=== PATIENT | male | born 1940 | race Caucasian/White ===

== ENCOUNTER 2021-07-17 11:36 | Inpatient (IN) | payer MEDICARE, OTHER ==
[~2021-07-17] VITALS: Ht 162.6 cm; Wt 70.8 kg
--- NOTE | 2021-07-17 11:40 | NUR ---
Note michelevie in EDM - 07/17/21 at 1151 by ZAC BIB private ambulance and SALES FORECAST ANALYST with SNF with c/o chronic neck mass that has been getting progressively worse. Pt has trach to vent, no s/s of acute distress noted. Pt was referred to ER by .
--- NOTE | 2021-07-17 11:40 | NUR ---
BIB private ambulance and CHASSIS DRIVER from SNF with c/o chronic neck mass that has been getting progressively worse. Pt has trach to vent, no s/s of acute distress noted. Pt was referred to ER by .
--- NOTE | 2021-07-17 11:45 | NUR ---
Pt placed on vent by NANNY CAREGIVER.
--- NOTE | 2021-07-17 11:50 | NUR ---
Dr. Thorne paged per Dr. Rogers request.
[2021-07-17 11:59] LABS: HEMATOCRIT 26.1 % (36.7-47.1); MEAN CORPUSCULAR HEMOGLOBIN 31.5 uug (23.8-33.4); PLATELET COUNT (AUTO) 212 K/uL (152-348)
[2021-07-17 12:11] LABS: CARBON DIOXIDE 27 mmol/L (21-32); CHLORIDE 103 mmol/L (98-107); CREATININE 2.6 mg/dL (0.6-1.3); GLUCOSE 129 mg/dL (74-106); POTASSIUM 3.9 mmol/L (3.5-5.1); UREA NITROGEN, BLOOD 50 mg/dL (7-18)
[2021-07-17] MEDS ORDERED: SWABABLE VALVE TRANSFER SET EA MC ONE (12:18)
[2021-07-17] MEDS ORDERED: IOHEXOL 300MG/ML 100 ML INFUS..BTL ONE (12:18)
[2021-07-17] MEDS ORDERED: IV NORMAL SALINE 250 ML IV ONE (12:18)
--- NOTE | 2021-07-17 13:00 | NUR ---
Dr. Rogers spoke with Dr. Thorne and pt has been accepted for admission to [facility]. Spoke with charge nurse on tele/[facility] floor who will call back when [facility] bed is available. Pt resting with NAD noted at this time.
[2021-07-17] MEDS ORDERED: HYDR100T27 GT (13:03)
[2021-07-17] MEDS ORDERED: FOLI0.8T2 GT (13:03)
[2021-07-17] MEDS ORDERED: ACET-2154 PO (13:03)
[2021-07-17] MEDS ORDERED: ATOR40TA GT (13:03)
[2021-07-17] MEDS ORDERED: NA P133E RC (13:03)
[2021-07-17] MEDS ORDERED: OMEP40CA21 GT (13:03)
[2021-07-17] MEDS ORDERED: GABA-532 GT ×2 (13:03)
[2021-07-17] MEDS ORDERED: ACET-73 GT (13:03)
[2021-07-17] MEDS ORDERED: DOCU100C36 GT (13:03)
[2021-07-17] MEDS ORDERED: OMEP20TA5 PO (13:03)
[2021-07-17] MEDS ORDERED: BENA40TA8 GT (13:03)
[2021-07-17] MEDS ORDERED: DOXA8TAB79 GT (13:03)
[2021-07-17] MEDS ORDERED: MAGN400O6 GT (13:03)
[2021-07-17] MEDS ORDERED: NITR0.4T SL (13:03)
[2021-07-17] MEDS ORDERED: TRAM50TA2 GT (13:03)
[2021-07-17] MEDS ORDERED: ASCO500P18 GT (13:03)
[2021-07-17] MEDS ORDERED: METO25TA6 GT (13:03)
[2021-07-17] MEDS ORDERED: POLY17PO4 GT (13:03)
[2021-07-17] MEDS ORDERED: AMLO-212 GT (13:03)
[2021-07-17] MEDS ORDERED: CELE200C GT (13:03)
[2021-07-17] MEDS ORDERED: ISOS40TA19 GT (13:03)
[2021-07-17] MEDS ORDERED: MAG355OR18 GT (13:03)
[2021-07-17] MEDS ORDERED: BISA10SU61 RC (13:03)
[2021-07-17] MEDS ORDERED: FOLI1TAB94 GT (13:03)
[2021-07-17] MEDS ORDERED: IPRA0.2S48 NEB ×2 (13:03)
[2021-07-17 14:53] LABS: BILIRUBIN,DIRECT 0.1 mg/dL (0.0-0.2); BILIRUBIN,TOTAL 0.3 mg/dL (0.2-1.0)
[2021-07-17] MEDS ORDERED: ONDANSETRON 4 MG/2 ML VIAL IV PRN (16:15)
[2021-07-17] MEDS ORDERED: BISACODYL 10 MG SUPP.RECT RC PRN (16:15)
[2021-07-17] MEDS ORDERED: NITROGLYCERIN 0.4 MG/TAB BOTTLE SL PRN (16:15)
[2021-07-17] MEDS ORDERED: MAG HYDROX/AL HYDROX/SIMETH 30 ML LIQUID UDC GT PRN (16:15)
[2021-07-17] MEDS ORDERED: FLEET ENEMA 133 ML BOTTLE RC PRN (16:15)
[2021-07-17] MEDS ORDERED: IPRATROPIUM BROMIDE 0.5 MG/2.5 ML NEBU NEB PRN (16:15)
--- NOTE | 2021-07-17 17:15 | NUR ---
Pt trans to [facility] room 308, NAD noted.
[2021-07-17 17:30] VITALS: BP 153/47
--- NOTE | 2021-07-17 18:00 | NUR ---
ADMITTED FROM ER AN 80 YO MALE FROM [facility] WITH DX OF CHF, RIGHT NECK MASS. ALERT AND ABLE TO COMMUNICATE BY SIGN LANGUAGE. NO SS OF SOB OR RESP DISTRESS. ON A VENT SETS AT 16-600-40-5. ADMISSION ORDERS GIVEN BY DR GUTIERREZ, SR ON MONITOR.
[2021-07-17 20:06] VITALS: BP 157/51
[2021-07-17] MEDS: NEPRO 1000 ML GT PRN (20:50)
[2021-07-17] MEDS: IPRATROPIUM BROMIDE 0.5 MG/2.5 ML NEBU NEB SCH (20:59)
[2021-07-17] MEDS ORDERED: GABAPENTIN 100 MG CAPSULE GT SCH (21:00)
[2021-07-17] MEDS: GABAPENTIN 100 MG CAPSULE GT SCH (21:45)
[2021-07-17] MEDS: DOXAZOSIN 2 MG TABLET GT SCH (21:46)
[2021-07-17] MEDS: AMLODIPINE 5 MG TABLET GT SCH (21:46)
[2021-07-17] MEDS: ISOSORBIDE DINITRATE 20 MG TABLET GT SCH (21:46)
[2021-07-17] MEDS: ATORVASTATIN 40 MG TABLET GT SCH (21:47)
[2021-07-17] MEDS: Z GUARD REMEDY PASTE 57 GM TUBE TOP SCH (21:47)
[2021-07-17] MEDS: hydrALAZINE HCL 50 MG TABLET GT SCH (21:48)
--- NOTE | 2021-07-17 23:50 | NUR ---
PATIENT ON CONT VENT WITH PORTEX # [address] AND SECURED, WITH CURRENT VENT SETTINGS, A/C 18, 600ML, PEEP5, FIO2 @ 40%, PT AWAKE AT TIMES, PT DOES ASSIST AT TIMES, PT CAN SUCTION HIS MOUTH WITH YANKAUER, PROD, A LOT OF ORAL SECRETIONS, CHECK CUFF, NO VENT CHANGES MADE, P.OXY CONT AT BEDSIDE, Q6 NEB INLINE WITH ATROVENT TOLL WELL, AMBU BAG AT BEDSIDE .Ronnell PALACIOSP Addendum: 07/17/21 at 2353 by CHRISTINE CHACKO RT Amended: Links added.
[2021-07-18 00:03] VITALS: BP 118/55
[2021-07-18] MEDS: IPRATROPIUM BROMIDE 0.5 MG/2.5 ML NEBU NEB SCH ×4 (02:15→19:25)
[2021-07-18 04:10] VITALS: BP 124/50
[2021-07-18] MEDS: hydrALAZINE HCL 50 MG TABLET GT SCH ×3 (06:00→21:08)
[2021-07-18 07:33] VITALS: BP 126/41
--- NOTE | 2021-07-18 08:00 | NUR ---
RECEIVED PATIENT LAYING IN BED IN NO APPARENT DISTRESS. THE PATIENT IS ALERT AND ORIENTED, NONVERBAL BUT ABLE TO MOUTH NEEDS. PATIENT IS CURRENTLY ON VENT AC 18 VT 600 40% + 5 AND TOLERATING SETTINGS WELL, RR EVEN AND NON-LABORED, NO EPISODE OF SOB AT THIS TIME. PATIENT CURRENTLY ON GT FEEDING, TOLERATING WELL, 0 RESIDUAL NOTED AT THIS TIME. PATIENT CURRENTLY ON TELEMETRY SHOWING NSR AT 64 HR. PATIENT DENIES ANY PAIN OR DISCOMFORT AT THIS TIME. V/S WNL. REMINDED TO USE CALL LIGHT FOR HELP.
[2021-07-18] MEDS: DOCUSATE SODIUM 100 MG/10 ML LIQUID UDC GT SCH (08:51)
[2021-07-18] MEDS: PANTOPRAZOLE ORAL SUSPENSION 40 MG SUSPDR.PKT GT SCH (08:52)
[2021-07-18] MEDS: ASCORBIC ACID 500 MG TABLET GT SCH (08:52)
[2021-07-18] MEDS: FOLIC ACID/VITAMIN B COMP W-C TABLET GT SCH (08:53)
[2021-07-18] MEDS: GABAPENTIN 100 MG CAPSULE GT SCH ×3 (08:53→21:04)
[2021-07-18] MEDS: AMLODIPINE 5 MG TABLET GT SCH ×2 (08:54→17:02)
[2021-07-18] MEDS: MIRALAX 17 GM POWD.PACK GT SCH (08:56)
[2021-07-18] MEDS: ISOSORBIDE DINITRATE 20 MG TABLET GT SCH ×2 (08:56→21:05)
[2021-07-18] MEDS: Z GUARD REMEDY PASTE 57 GM TUBE TOP SCH ×2 (08:57→21:06)
[2021-07-18] MEDS: ACETAMINOPHEN 650 MG/20.3 ML LIQUID UDC GT PRN (09:16)
[2021-07-18 11:46] VITALS: BP 120/40
[2021-07-18 16:00] VITALS: BP 122/36
--- NOTE | 2021-07-18 16:12 | NUR ---
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 Rodgers aware with new orders for Bactroban ointment to both nares q 12 hours x 5 days, order noted and carried out.
--- NOTE | 2021-07-18 16:35 | NUR ---
ART from crisis team in unit evaluating patient.
[2021-07-18] MEDS: NEPRO 1000 ML GT PRN (17:07)
--- NOTE | 2021-07-18 17:37 | NUR ---
patient on a hold to be transferred to [facility].
--- NOTE | 2021-07-18 17:37 | NUR ---
belonging lists completed with 2 nurses and discharge paperwork completed with 2 nurses, patient unable to sign due to cognitive status. Informed patient of transfer to [facility], patient with slight confusion, replies ok Addendum: 07/18/21 at 1850 by DIMITRIOS CRAMER RN incorrect patient
--- NOTE | 2021-07-18 19:25 | NUR ---
Pt is on a Cobos ventilator on settings of A/C 18, VT 600, PEEP +5 and FIO2-40%. No resp. distress noted. Portex 7 is patent and secure. BVM and B/U Portex 7 are at at bedside. Pt to be monitored throughout the shift and PRN SX. Cobos alarm parameters have been checked and remain audible.
[2021-07-18 20:42] VITALS: BP 130/52
[2021-07-18] MEDS: ATORVASTATIN 40 MG TABLET GT SCH (21:05)
[2021-07-18] MEDS: DOXAZOSIN 2 MG TABLET GT SCH (21:05)
[2021-07-18] MEDS: MUPIROCIN 2% OINT 22 GM TUBE NS SCH (21:06)
[2021-07-19 00:09] VITALS: BP 126/40
[2021-07-19] MEDS: IPRATROPIUM BROMIDE 0.5 MG/2.5 ML NEBU NEB SCH ×4 (00:47→19:41)
[2021-07-19 04:58] VITALS: BP 133/44
[2021-07-19] MEDS: hydrALAZINE HCL 50 MG TABLET GT SCH ×3 (05:48→22:26)
[2021-07-19 06:55] LABS: MEAN CORPUSCULAR HEMOGLOBIN 32.1 uug (23.8-33.4); MEAN CORPUSCULAR VOLUME 92.2 fL (73.0-96.2); PLATELET COUNT (AUTO) 205 K/uL (152-348)
[2021-07-19 07:22] LABS: ALANINE AMINOTRANSFERASE 25 U/L (16-63); ALKALINE PHOSPHATASE 180 U/L (50-136); ASPARTATE AMINOTRANSFERASE 21 U/L (15-37); BILIRUBIN,TOTAL 0.4 mg/dL (0.2-1.0); CARBON DIOXIDE 20 mmol/L (21-32); CHLORIDE 103 mmol/L (98-107); CHOLESTEROL 67 mg/dL (<200); CREATININE 2.7 mg/dL (0.6-1.3); GLUCOSE 117 mg/dL (74-106); HDL CHOLESTEROL 35 mg/dL (40-60); PHOSPHOROUS 3.3 mg/dL (2.5-4.9); POTASSIUM 3.2 mmol/L (3.5-5.1); TOTAL PROTEIN, SERUM 6.8 g/dL (6.4-8.2); TRIGLYCERIDES 70 MG/DL (30-150); UREA NITROGEN, BLOOD 63 mg/dL (7-18)
[2021-07-19 07:27] LABS: IRON, SERUM 44 ug/dL (50-175)
--- NOTE | 2021-07-19 07:30 | NUR ---
Awake, alert, on moderate high back rest. Trach to vent with settings of TV 600, AC 18, FI02 40%, PEEP 5. Oral secretions suctioned. Nephro per GT at 60 ml/hr. Midline on RUE intact.
[2021-07-19 08:24] LABS: THYROID STIMULATING HORMONE 1.286 mIU/mL (0.358-3.740)
[2021-07-19] MEDS ORDERED: POTASSIUM CHLORIDE 20 MEQ POWDER PACKET GT ONE (09:15)
[2021-07-19 12:00] VITALS: BP 117/48
[2021-07-19] MEDS: DOCUSATE SODIUM 100 MG/10 ML LIQUID UDC GT SCH (12:45)
[2021-07-19] MEDS: ISOSORBIDE DINITRATE 20 MG TABLET GT SCH ×2 (12:46→20:56)
[2021-07-19] MEDS: MIRALAX 17 GM POWD.PACK GT SCH (12:46)
[2021-07-19] MEDS: ASCORBIC ACID 500 MG TABLET GT SCH (12:47)
[2021-07-19] MEDS: FOLIC ACID/VITAMIN B COMP W-C TABLET GT SCH (12:47)
[2021-07-19] MEDS: PANTOPRAZOLE ORAL SUSPENSION 40 MG SUSPDR.PKT GT SCH (12:47)
[2021-07-19] MEDS: GABAPENTIN 100 MG CAPSULE GT SCH ×3 (12:47→20:56)
[2021-07-19] MEDS: AMLODIPINE 5 MG TABLET GT SCH ×2 (12:48→18:01)
[2021-07-19] MEDS: Z GUARD REMEDY PASTE 57 GM TUBE TOP SCH ×2 (12:51→20:57)
[2021-07-19] MEDS: MUPIROCIN 2% OINT 22 GM TUBE NS SCH ×2 (12:51→20:56)
--- NOTE | 2021-07-19 13:00 | NUR ---
Hemodialysis done with 2L output. Medications given. With BM incontinence care done with bed bath. Repositioned comfortably
[2021-07-19 14:12] LABS: ABG BASE EXCESS 4.2 mmol/L; ABG HCO3 24.5 mmol/L; ABG PCO2 23.7 mmHg (35.0-45.0); ABG PH 7.632 (7.350-7.450); ABG PO2 119.2 mmHg (75.0-100.0); ABG SITE LEFT RADIAL; ABG TOTAL HEMOGLOBIN 10.4 G/dL (13.5-18.0); COHb 0.3 % (0.5-1.5); MetHb 0.4 % (0.0-1.5); O2Hb 97.8 % (94.0-97.0); VENT MODE VENT - A/C; VT, ABG 600 mL
--- NOTE | 2021-07-19 15:18 | NUR ---
Clinical Social Work Note SW consult was requested for SW to speak with patients daughter. Patient is a 80 year old male. SW did not visit patient as daughter requested to speak with SW. SW spoke with patients daughter over the phone who wanted more information about advanced directive. SW provided information regarding the process of obtaining an advance directive. Patients daughter stated that her brother has been the patients caregiver but her brother has been ill. Patients daughter stated that she understood the process of the advanced directive and that she would like SW to explain it to patient during her next visit. Per patient's daughter, at the SNF, they had provided patient with a blank DPOA form, but it was never completed. Plan: SW will continue to follow up with patients daughter.
[2021-07-19 16:00] VITALS: BP 130/52
[2021-07-19 16:17] LABS: FERRITIN 539 ng/mL (26-388)
[2021-07-19] MEDS: NEPRO 1000 ML GT PRN (16:48)
--- NOTE | 2021-07-19 18:44 | NUR ---
ABG's done. Vent settings changed to rate of 14; FIO2 30%. Secretions suctioned. oral care done. Nephro at 60 ml/hr, well tolerated, no significant residual noted. Incontinence care done. Repositioned comfortably.
[2021-07-19 20:15] VITALS: BP 125/40
[2021-07-19] MEDS: DOXAZOSIN 2 MG TABLET GT SCH (20:55)
[2021-07-19] MEDS: ATORVASTATIN 40 MG TABLET GT SCH (20:57)
[2021-07-20 00:10] VITALS: BP 110/37
[2021-07-20] MEDS: IPRATROPIUM BROMIDE 0.5 MG/2.5 ML NEBU NEB SCH ×4 (01:15→21:41)
[2021-07-20 04:10] VITALS: BP 135/45
[2021-07-20] MEDS: hydrALAZINE HCL 50 MG TABLET GT SCH ×3 (06:28→21:58)
[2021-07-20 07:07] LABS: A/G RATIO 0.8 (0.7-1.7); ALBUMIN 2.7 g/dL (2.9-4.4); ALPHA-1-GLOBULIN 0.3 g/dL (0.0-0.4); ALPHA-2-GLOBULIN 0.8 g/dL (0.4-1.0); GAMMA GLOBULIN 1.3 g/dL (0.4-1.8); GLOBULIN, TOTAL 3.5 g/dL (2.2-3.9); M-SPIKE Not Observed g/dL (Not Observed)
[2021-07-20 07:07] LABS: HEPATITIS B SURFACE AG Negative (Negative)
[2021-07-20 08:00] VITALS: BP 141/46
[2021-07-20 08:06] LABS: *IMMUNOGLOBULIN G, SERUM 1250 mg/dL (603-1613); IMMUNOGLOBULIN A, SERUM 549 mg/dL (61-437); IMMUNOGLOBULIN M, SERUM 91 mg/dL (15-143)
--- NOTE | 2021-07-20 09:00 | NUR ---
ALL MEDS HELD. PATIENT NPO FOR CT ABDOMEN. AWAITING RT AND RADIOLOGY TO TRANSPORT PATIENT.
[2021-07-20] MEDS ORDERED: IV NORMAL SALINE 250 ML IV ONE (10:34)
[2021-07-20] MEDS ORDERED: SWABABLE VALVE TRANSFER SET EA MC ONE (10:34)
[2021-07-20] MEDS ORDERED: IOHEXOL 300MG/ML 100 ML INFUS..BTL ONE (10:34)
[2021-07-20 12:00] VITALS: BP 121/43
[2021-07-20] MEDS: PANTOPRAZOLE ORAL SUSPENSION 40 MG SUSPDR.PKT GT SCH (13:02)
[2021-07-20] MEDS: GABAPENTIN 100 MG CAPSULE GT SCH ×3 (13:02→21:00)
[2021-07-20] MEDS: ASCORBIC ACID 500 MG TABLET GT SCH (13:03)
[2021-07-20] MEDS: FOLIC ACID/VITAMIN B COMP W-C TABLET GT SCH (13:03)
[2021-07-20] MEDS: DOCUSATE SODIUM 100 MG/10 ML LIQUID UDC GT SCH (13:04)
[2021-07-20] MEDS: ISOSORBIDE DINITRATE 20 MG TABLET GT SCH ×2 (13:04→21:58)
[2021-07-20] MEDS: AMLODIPINE 5 MG TABLET GT SCH ×2 (13:04→20:09)
[2021-07-20] MEDS: MIRALAX 17 GM POWD.PACK GT SCH (13:05)
[2021-07-20] MEDS: MUPIROCIN 2% OINT 22 GM TUBE NS SCH ×2 (13:06→21:59)
[2021-07-20] MEDS: Z GUARD REMEDY PASTE 57 GM TUBE TOP SCH ×2 (13:07→22:00)
--- NOTE | 2021-07-20 13:45 | NUR ---
FINALLY RETURNEN FROM CT. TUBE FEEDING STARTED, AND AM MEDS GIVEN.
[2021-07-20 16:00] VITALS: BP 122/47
[2021-07-20 20:00] VITALS: BP 145/59
[2021-07-20] MEDS: TRAMADOL HCL 50 MG TABLET GT PRN (20:09)
[2021-07-20] MEDS: ATORVASTATIN 40 MG TABLET GT SCH (21:59)
[2021-07-20] MEDS: DOXAZOSIN 2 MG TABLET GT SCH (21:59)
[2021-07-21] VITALS: BP 125/54
[2021-07-21] MEDS: IPRATROPIUM BROMIDE 0.5 MG/2.5 ML NEBU NEB SCH ×4 (01:39→20:24)
[2021-07-21 04:00] VITALS: BP 107/58
[2021-07-21] MEDS: hydrALAZINE HCL 50 MG TABLET GT SCH ×3 (06:34→22:11)
--- NOTE | 2021-07-21 07:30 | NUR ---
AWAKE ALERT AND ABLE TO FOLLOW COMMAND SATURATING 100% WITH SAME VENT SETTINGS 14-600-30-5, DENIES PAIN SR ON MONITOR
[2021-07-21] MEDS: DOCUSATE SODIUM 100 MG/10 ML LIQUID UDC GT SCH (08:13)
[2021-07-21] MEDS: GABAPENTIN 100 MG CAPSULE GT SCH ×3 (08:13→20:15)
[2021-07-21] MEDS: ASCORBIC ACID 500 MG TABLET GT SCH (08:13)
[2021-07-21] MEDS: PANTOPRAZOLE ORAL SUSPENSION 40 MG SUSPDR.PKT GT SCH (08:13)
[2021-07-21] MEDS: FOLIC ACID/VITAMIN B COMP W-C TABLET GT SCH (08:13)
[2021-07-21] MEDS: MIRALAX 17 GM POWD.PACK GT SCH (08:14)
[2021-07-21] MEDS: AMLODIPINE 5 MG TABLET GT SCH ×2 (08:14→16:09)
[2021-07-21] MEDS: MUPIROCIN 2% OINT 22 GM TUBE NS SCH ×2 (08:15→20:17)
[2021-07-21] MEDS: ISOSORBIDE DINITRATE 20 MG TABLET GT SCH ×2 (08:15→20:17)
[2021-07-21] MEDS: Z GUARD REMEDY PASTE 57 GM TUBE TOP SCH ×2 (08:16→20:18)
[2021-07-21] MEDS: ACETAMINOPHEN 650 MG/20.3 ML LIQUID UDC GT PRN (08:22)
[2021-07-21 08:31] LABS: ABG BASE EXCESS 0.8 mmol/L; ABG HCO3 21.9 mmol/L; ABG PCO2 24.4 mmHg (35.0-45.0); ABG PH 7.571 (7.350-7.450); ABG PO2 98.9 mmHg (75.0-100.0); ABG SITE LEFT RADIAL; ABG TOTAL HEMOGLOBIN 10.5 G/dL (13.5-18.0); COHb 0.3 % (0.5-1.5); MetHb 0.1 % (0.0-1.5); O2Hb 97.2 % (94.0-97.0); VENT MODE VENT - A/C; VT, ABG 500 mL
[2021-07-21] MEDS: NEPRO 1000 ML GT PRN (09:29)
--- NOTE | 2021-07-21 10:14 | NUR ---
SEEN BY DR CARTER FOR FOLLOW-UP SEE NOTES
[2021-07-21 12:02] VITALS: BP 134/42
--- NOTE | 2021-07-21 15:52 | NUR ---
TOLERATING HEMODIALYSIS WELL, REMOVED 2L OF FLUID. REMAINS SR/SB. CONTINUE [facility] MANAGEMENT
[2021-07-21 16:00] VITALS: BP 130/53
[2021-07-21] MEDS: ATORVASTATIN 40 MG TABLET GT SCH (20:16)
[2021-07-21 20:17] VITALS: BP 121/65
[2021-07-21] MEDS: DOXAZOSIN 2 MG TABLET GT SCH (20:17)
[2021-07-21] MEDS: TRAMADOL HCL 50 MG TABLET GT PRN (20:21)
--- NOTE | 2021-07-22 00:32 | NUR ---
PATIENT ON CONT HARDIN VENT WITH PORTEX # [address] AND SECURED, WITH CURRENT VENT SETTINGS, A/C 14, VT 500ML, FIO2 30%, PEEP 5, SUCTIONED LIGHT PALE YELL TINGE SECRETIONS, AND SUCTION MOUTH WITH YANKAUER, VERY PROD, ALL VENT ALARMS GOOD, NEB INLINE Q6 WITH ATROVENT TOLL WELL, NO VENT CHANGES MADE.Ronnell CHACKO RCP Addendum: 07/22/21 at 0038 by CHRISTINE CHACKO RT Amended: Links added.
[2021-07-22 00:52] VITALS: BP 113/48
[2021-07-22] MEDS: IPRATROPIUM BROMIDE 0.5 MG/2.5 ML NEBU NEB SCH ×4 (03:05→20:52)
[2021-07-22 04:43] VITALS: BP 124/46
[2021-07-22] MEDS: hydrALAZINE HCL 50 MG TABLET GT SCH ×3 (05:56→21:17)
[2021-07-22 07:36] LABS: HEMATOCRIT 26.2 % (36.7-47.1); MEAN CORPUSCULAR HEMOGLOBIN 32.7 uug (23.8-33.4); PLATELET COUNT (AUTO) 229 K/uL (152-348)
[2021-07-22 07:51] LABS: ALANINE AMINOTRANSFERASE 28 U/L (16-63); ALKALINE PHOSPHATASE 171 U/L (50-136); ASPARTATE AMINOTRANSFERASE 24 U/L (15-37); BILIRUBIN,TOTAL 0.5 mg/dL (0.2-1.0); CARBON DIOXIDE 26 mmol/L (21-32); CHLORIDE 99 mmol/L (98-107); CREATININE 2.5 mg/dL (0.6-1.3); GLUCOSE 115 mg/dL (74-106); POTASSIUM 3.4 mmol/L (3.5-5.1); TOTAL PROTEIN, SERUM 7.6 g/dL (6.4-8.2); UREA NITROGEN, BLOOD 43 mg/dL (7-18)
--- NOTE | 2021-07-22 08:00 | NUR ---
PATIENT IN BED RESTING COMFORTABLY. ALERT AND FOLLOWING COMMANDS. NO SIGNS OF DISTRESS WITH CURRENT VENT SETTINGS AT RR 14 - TV 600 -FIO2 40% - PEEP 5
[2021-07-22 08:14] VITALS: BP 139/47
[2021-07-22] MEDS: MIRALAX 17 GM POWD.PACK GT SCH (08:32)
[2021-07-22] MEDS: DOCUSATE SODIUM 100 MG/10 ML LIQUID UDC GT SCH (08:32)
[2021-07-22] MEDS: PANTOPRAZOLE ORAL SUSPENSION 40 MG SUSPDR.PKT GT SCH (08:32)
[2021-07-22] MEDS: ASCORBIC ACID 500 MG TABLET GT SCH (08:36)
[2021-07-22] MEDS: ISOSORBIDE DINITRATE 20 MG TABLET GT SCH ×2 (08:38→21:13)
[2021-07-22] MEDS: GABAPENTIN 100 MG CAPSULE GT SCH ×3 (08:38→21:14)
[2021-07-22] MEDS: FOLIC ACID/VITAMIN B COMP W-C TABLET GT SCH (08:38)
[2021-07-22] MEDS: AMLODIPINE 5 MG TABLET GT SCH ×2 (08:39→17:10)
[2021-07-22] MEDS: MUPIROCIN 2% OINT 22 GM TUBE NS SCH ×2 (08:40→21:14)
[2021-07-22] MEDS: Z GUARD REMEDY PASTE 57 GM TUBE TOP SCH ×2 (08:41→21:15)
[2021-07-22] MEDS ORDERED: POTASSIUM CHLORIDE 20 MEQ POWDER PACKET GT ONE (11:00)
[2021-07-22 11:55] VITALS: BP 112/43
[2021-07-22 15:39] VITALS: BP 86/41
[2021-07-22] MEDS: DOXAZOSIN 2 MG TABLET GT SCH (21:13)
[2021-07-22] MEDS: ATORVASTATIN 40 MG TABLET GT SCH (21:14)
[2021-07-22] MEDS: TRAMADOL HCL 50 MG TABLET GT PRN (21:20)
[2021-07-22 21:36] VITALS: BP 136/90
[2021-07-23 00:24] VITALS: BP 139/45
--- NOTE | 2021-07-23 00:52 | NUR ---
PATIENT ON CONT HARDIN VENT WITH PORTEX # [address] AND SECURED, WITH CURRENT VENT SETTINGS, A/C 14, 500ML, PEEP5, FIO2 @ 30%, PT DOES ASSIST AT TIMES, GOOD COUGH EFFORT, PT IS ALERT AND COHERENT , SUCTIONED THICK PALE YELL TINGE SECRETIONS, SUCTION MOUTH WITH YANKAUER, CHANGE HME, NEB INLINE X 2 WITH ATROVENT, ALL VENT ALARMS GOOD, NO VENT CHANGES MADE, PULSE OXY CONT AT BEDSIDE. Ronnell PALACIOSP Addendum: 07/23/21 at 0056 by CHRISTINE CHACKO RT Amended: Links added.
[2021-07-23] MEDS: IPRATROPIUM BROMIDE 0.5 MG/2.5 ML NEBU NEB SCH ×4 (02:49→19:00)
[2021-07-23 04:03] VITALS: BP 135/47
[2021-07-23] MEDS: hydrALAZINE HCL 50 MG TABLET GT SCH ×3 (06:00→21:36)
--- NOTE | 2021-07-23 06:00 | NUR ---
Pt rested well in between care; oral care and trache care done; suctioned oral and trache secretions
[2021-07-23 07:19] LABS: CARBON DIOXIDE 27 mmol/L (21-32); CHLORIDE 100 mmol/L (98-107); CREATININE 3.1 mg/dL (0.6-1.3); GLUCOSE 120 mg/dL (74-106); POTASSIUM 3.5 mmol/L (3.5-5.1); UREA NITROGEN, BLOOD 62 mg/dL (7-18)
[2021-07-23 08:00] VITALS: BP 138/48
[2021-07-23] MEDS: DOCUSATE SODIUM 100 MG/10 ML LIQUID UDC GT SCH (08:16)
[2021-07-23] MEDS: MIRALAX 17 GM POWD.PACK GT SCH (08:16)
[2021-07-23] MEDS: ISOSORBIDE DINITRATE 20 MG TABLET GT SCH ×2 (08:17→20:39)
[2021-07-23] MEDS: PANTOPRAZOLE ORAL SUSPENSION 40 MG SUSPDR.PKT GT SCH (08:17)
[2021-07-23] MEDS: GABAPENTIN 100 MG CAPSULE GT SCH ×3 (08:17→20:38)
[2021-07-23] MEDS: AMLODIPINE 5 MG TABLET GT SCH ×2 (08:19→16:19)
[2021-07-23] MEDS: FOLIC ACID/VITAMIN B COMP W-C TABLET GT SCH (08:19)
[2021-07-23] MEDS: TRAMADOL HCL 50 MG TABLET GT PRN (08:19)
[2021-07-23] MEDS: Z GUARD REMEDY PASTE 57 GM TUBE TOP SCH ×2 (08:42→20:39)
[2021-07-23] MEDS: ASCORBIC ACID 500 MG TABLET GT SCH (08:42)
[2021-07-23] MEDS: MUPIROCIN 2% OINT 22 GM TUBE NS SCH (08:42)
[2021-07-23 11:17] VITALS: BP 132/40
[2021-07-23] MEDS: NEPRO 1000 ML GT PRN (12:03)
[2021-07-23 15:26] VITALS: BP 126/44
[2021-07-23 20:02] VITALS: BP 140/54
[2021-07-23] MEDS: DOXAZOSIN 2 MG TABLET GT SCH (20:38)
[2021-07-23] MEDS: ATORVASTATIN 40 MG TABLET GT SCH (20:38)
[2021-07-24 00:22] VITALS: BP 131/47
[2021-07-24] MEDS: IPRATROPIUM BROMIDE 0.5 MG/2.5 ML NEBU NEB SCH ×4 (00:30→19:12)
[2021-07-24 04:33] VITALS: BP 137/46
--- NOTE | 2021-07-24 06:00 | NUR ---
Suctioned pt through out night x 5 times moderate amount each time. Pt slept well throughout night. G tube flushing well. Pt tolerating Vent settings as ordered with sat of 99%. Z guard applied on buttocks and reddened area. Pt is in no acute distress. Call light is within reach.
[2021-07-24] MEDS: hydrALAZINE HCL 50 MG TABLET GT SCH ×3 (06:20→22:17)
[2021-07-24 06:40] LABS: HEMATOCRIT 25.7 % (36.7-47.1); MEAN CORPUSCULAR HEMOGLOBIN 32.6 uug (23.8-33.4); MEAN CORPUSCULAR VOLUME 93.2 fL (73.0-96.2); PLATELET COUNT (AUTO) 236 K/uL (152-348)
[2021-07-24 06:53] LABS: CARBON DIOXIDE 25 mmol/L (21-32); CHLORIDE 101 mmol/L (98-107); CREATININE 3.2 mg/dL (0.6-1.3); GLUCOSE 104 mg/dL (74-106); MAGNESIUM 1.9 mg/dL (1.8-2.4); POTASSIUM 3.4 mmol/L (3.5-5.1); UREA NITROGEN, BLOOD 71 mg/dL (7-18)
[2021-07-24 08:00] VITALS: BP 153/51
[2021-07-24] MEDS: ISOSORBIDE DINITRATE 20 MG TABLET GT SCH ×2 (10:00→20:51)
[2021-07-24] MEDS: FOLIC ACID/VITAMIN B COMP W-C TABLET GT SCH (10:01)
[2021-07-24] MEDS: PANTOPRAZOLE ORAL SUSPENSION 40 MG SUSPDR.PKT GT SCH (10:01)
[2021-07-24] MEDS: ASCORBIC ACID 500 MG TABLET GT SCH (10:01)
[2021-07-24] MEDS: GABAPENTIN 100 MG CAPSULE GT SCH ×3 (10:01→20:51)
[2021-07-24] MEDS: MIRALAX 17 GM POWD.PACK GT SCH (10:01)
[2021-07-24] MEDS: DOCUSATE SODIUM 100 MG/10 ML LIQUID UDC GT SCH (10:01)
[2021-07-24] MEDS: CALCITONIN,SALMON,SYNTHETIC 3.7 ML SPRAY.PUMP NS SCH (10:02)
[2021-07-24] MEDS: AMLODIPINE 5 MG TABLET GT SCH ×2 (10:02→16:28)
[2021-07-24] MEDS: Z GUARD REMEDY PASTE 57 GM TUBE TOP SCH ×2 (10:03→22:14)
[2021-07-24 15:49] VITALS: BP 141/48
--- NOTE | 2021-07-24 20:00 | NUR ---
pt has ongoing dialysis; pt will be discharged to [facility] after hd; family here and reiterated to take all belongings with him;
[2021-07-24 20:42] VITALS: BP 124/46
[2021-07-24] MEDS: ATORVASTATIN 40 MG TABLET GT SCH (20:51)
[2021-07-24] MEDS: DOXAZOSIN 2 MG TABLET GT SCH (20:51)
--- NOTE | 2021-07-24 22:46 | NUR ---
following end of HD, called [facility] for transport and no RT available now and will be available by 0800H; aware Addendum: 07/24/21 at 2301 by MALDONADO RODGERS RN Night RN at [facility] aware of AM transfer and stated that to give report to the AM nurse as well.
--- NOTE | 2021-07-24 23:00 | NUR ---
Assumed care of patient from JOSIE Saucedo.
--- NOTE | 2021-07-24 23:01 | NUR ---
report given to JJ GALINDO who will assume care for the rest of the shift.
[2021-07-25 00:05] VITALS: BP 127/46
[2021-07-25] MEDS: IPRATROPIUM BROMIDE 0.5 MG/2.5 ML NEBU NEB SCH (00:44)
[2021-07-25] MEDS: NEPRO 1000 ML GT PRN (03:29)
[2021-07-25 05:00] VITALS: BP 126/46
[2021-07-25] MEDS: hydrALAZINE HCL 50 MG TABLET GT SCH (06:08)
--- NOTE | 2021-07-25 06:27 | NUR ---
Patient AAOx4. In no apparent distress. Trach with vent in place. Suction secretions PRN. Oral care provided. O2 sat at 100%. NSR on tele with HR of 72/min. GT feeding and flushing well tolerated. HOB kept elevated. Right upper arm midline intact and patent. Needs assessed and attended to. Safety measure maintained and call light within reached.
--- NOTE | 2021-07-25 07:37 | NUR ---
Telephone call to [facility] and gave report fro nurse Saldana and states understanding.
[2021-07-25] MEDS: DOCUSATE SODIUM 100 MG/10 ML LIQUID UDC GT SCH (07:54)
[2021-07-25] MEDS: MIRALAX 17 GM POWD.PACK GT SCH (07:54)
[2021-07-25] MEDS: GABAPENTIN 100 MG CAPSULE GT SCH (07:54)
[2021-07-25 07:55] VITALS: BP 126/46
[2021-07-25] MEDS: ISOSORBIDE DINITRATE 20 MG TABLET GT SCH (07:55)
[2021-07-25] MEDS: AMLODIPINE 5 MG TABLET GT SCH (07:55)
[2021-07-25] MEDS: ASCORBIC ACID 500 MG TABLET GT SCH (07:55)
[2021-07-25] MEDS: FOLIC ACID/VITAMIN B COMP W-C TABLET GT SCH (07:55)
[2021-07-25] MEDS: CALCITONIN,SALMON,SYNTHETIC 3.7 ML SPRAY.PUMP NS SCH (07:56)
[2021-07-25] MEDS: PANTOPRAZOLE ORAL SUSPENSION 40 MG SUSPDR.PKT GT SCH (07:56)
[2021-07-25] MEDS: Z GUARD REMEDY PASTE 57 GM TUBE TOP SCH (07:57)
--- NOTE | 2021-07-25 15:37 | NUR ---
Late Entry Social work consult called for family requesting information re DPOA. Patient transferred to [facility] this am. Educated daughter, Lizzy ) re process for DPOA and advised her where she can obtain the DPOA forms. She was appreciative. Also advised her that the care home can assist her with this provided patient is competent to sign this legal document.
== END 2021-07-25 08:45 | DRG 843 ==
LOC: ER 11:36 → DOU3 16:56 → TELE-TD3 17:40
PROVIDERS: ADMIT Internal Medicine; ATTEND Student in an Organized Health Care Education/Training Program
PROC: 5A1955Z Respiratory Ventilation, Greater than 96 Consecutive Hours (ICD-10-PCS; principal; 2021-07-17)
PROC: 5A1D70Z Performance of Urinary Filtration, Intermittent, Less than 6 Hours Per Day (ICD-10-PCS; 2021-07-19)
DX: C79.89 Secondary malignant neoplasm of other specified sites (principal); J96.20 Acute and chronic respiratory failure, unspecified whether with hypoxia or hypercapnia; N18.6 End stage renal disease; E43 Unspecified severe protein-calorie malnutrition; I50.31 Acute diastolic (congestive) heart failure; C15.9 Malignant neoplasm of esophagus, unspecified; D68.59 Other primary thrombophilia; I13.2 Hypertensive heart and chronic kidney disease with heart failure and with stage 5 chronic kidney disease, or end stage renal disease; Z99.11 Dependence on respirator [ventilator] status; J96.10 Chronic respiratory failure, unspecified whether with hypoxia or hypercapnia; Z99.2 Dependence on renal dialysis; D64.9 Anemia, unspecified; E78.5 Hyperlipidemia, unspecified; F17.200 Nicotine dependence, unspecified, uncomplicated; G89.29 Other chronic pain; J44.9 Chronic obstructive pulmonary disease, unspecified; N40.0 Benign prostatic hyperplasia without lower urinary tract symptoms; R13.10 Dysphagia, unspecified; Z20.822 Contact with and (suspected) exposure to COVID-19; Z22.322 Carrier or suspected carrier of Methicillin resistant Staphylococcus aureus; Z74.01 Bed confinement status; Z85.01 Personal history of malignant neoplasm of esophagus; Z93.1 Gastrostomy status; Z93.0 Tracheostomy status; E83.52 Hypercalcemia; K21.9 Gastro-esophageal reflux disease without esophagitis; M19.90 Unspecified osteoarthritis, unspecified site; Z87.891 Personal history of nicotine dependence; F10.21 Alcohol dependence, in remission; Z73.6 Limitation of activities due to disability; R91.8 Other nonspecific abnormal finding of lung field; Z68.26 Body mass index [BMI] 26.0-26.9, adult
CPT/HCPCS: 36415; 36600; 70030-TC; 70491; 71045; 71260; 82378; 82784; 83550; 83735; 83970; 84100; 84155; 84165; 84443; 85025; 85610; 86140; 86334; 86706; 87070; 87077; 87340; 93005; 93307; 94002; 94003; 94640; 94760; A4663; A6209; G0378; J3590; J7030; J7040; J7050; Q9967

== ENCOUNTER 2021-08-14 12:40 | Inpatient (IN) | payer MEDICARE, OTHER ==
[~2021-08-14] VITALS: Ht 162.6 cm; Wt 63.6 kg
[~2021-08-14 12:40] MED LIST: ACET-2154 PO; ACET-73 GT; AMLO-212 GT; ASCO500P18 GT; ATOR40TA GT; BENA40TA8 GT; BISA10SU61 RC; CELE200C GT; DOCU100C36 GT; DOXA8TAB79 GT; FOLI0.8T2 GT; FOLI1TAB94 GT; GABA-532 GT; HYDR100T27 GT; IPRA0.2S48 NEB; ISOS40TA19 GT; MAG355OR18 GT; MAGN400O6 GT; METO25TA6 GT; NA P133E RC; NITR0.4T SL; OMEP20TA5 PO; OMEP40CA21 GT; POLY17PO4 GT; TRAM50TA2 GT
--- NOTE | 2021-08-14 14:28 | NUR ---
PT IS IN ROOM #2B. DR VELÁSQUEZ EVALUATED THE PT.
[2021-08-14 14:53] LABS: MEAN CORPUSCULAR HEMOGLOBIN 34.3 uug (23.8-33.4); MEAN CORPUSCULAR VOLUME 98.2 fL (73.0-96.2); PLATELET COUNT (AUTO) 225 K/uL (152-348)
[2021-08-14 15:10] LABS: ALANINE AMINOTRANSFERASE 20 U/L (16-63); ALKALINE PHOSPHATASE 129 U/L (50-136); ASPARTATE AMINOTRANSFERASE 37 U/L (15-37); BILIRUBIN,DIRECT 0.1 mg/dL (0.0-0.2); BILIRUBIN,TOTAL 0.2 mg/dL (0.2-1.0); CARBON DIOXIDE 26 mmol/L (21-32); CHLORIDE 106 mmol/L (98-107); CREATININE 4.6 mg/dL (0.6-1.3); GLUCOSE 97 mg/dL (74-106); POTASSIUM 4.1 mmol/L (3.5-5.1); TOTAL PROTEIN, SERUM 7.4 g/dL (6.4-8.2)
[2021-08-14 15:24] LABS: HEMATOCRIT 20.6 % (36.7-47.1); UREA NITROGEN, BLOOD 93 mg/dL (7-18)
[2021-08-14] MEDS ORDERED: ONDA4TAB11 GT (17:51)
[2021-08-14] MEDS ORDERED: LEVO500T90 PO (17:51)
[2021-08-14] MEDS ORDERED: CALC3.8S NS (17:51)
[2021-08-14] MEDS ORDERED: SULF1TAB48 GT (17:51)
[2021-08-14] MEDS ORDERED: LEVO500T90 GT (17:51)
[2021-08-14] MEDS: CEFEPIME HCL 2 G in IV DEXTROSE 5% 100 ML IV SCH (18:14)
[2021-08-14] MEDS ORDERED: CEFEPIME HCL 1 G VIAL ONE (18:25)
--- NOTE | 2021-08-14 19:10 | NUR ---
RECEIVED REPORT FROM JOSIE PRINGLE. PT NOTED TO BE IN BED. NO SOB OR LABORED BREATHING. AFEBRILE.
[2021-08-14] MEDS ORDERED: NITROGLYCERIN 0.4 MG/TAB BOTTLE SL PRN (21:00)
[2021-08-14] MEDS ORDERED: VANCOMYCIN IV 1,000 MG in IV DEXTROSE 5% 250 ML IV ONE (21:00)
[2021-08-14] MEDS ORDERED: FLEET ENEMA 133 ML BOTTLE RC PRN (21:00)
[2021-08-14] MEDS ORDERED: TRAMADOL HCL 50 MG TABLET GT PRN (21:00)
[2021-08-14] MEDS ORDERED: BISACODYL 10 MG SUPP.RECT RC PRN (21:00)
[2021-08-14] MEDS ORDERED: IPRATROPIUM BROMIDE 0.5 MG/2.5 ML NEBU NEB PRN (21:00)
[2021-08-14] MEDS ORDERED: ONDANSETRON 4 MG/2 ML VIAL IV PRN (21:00)
[2021-08-14] MEDS: METRONIDAZOLE 500 MG/NS 100ML 500 MG in PREMIXED 1 EACH IV SCH (22:11)
[2021-08-14] MEDS ORDERED: METRONIDAZOLE 500 MG/NS 100ML 100 ML IV ONE (22:15)
[2021-08-14] MEDS ORDERED: CLINDAMYCIN PHOSPHATE 600 MG/4 ML VIAL ONE (22:15)
[2021-08-14] MEDS ORDERED: GABAPENTIN 100 MG CAPSULE ONE (22:45)
[2021-08-14] MEDS ORDERED: DOXAZOSIN 2 MG TABLET ONE (22:45)
[2021-08-14] MEDS: DOXAZOSIN 2 MG TABLET GT SCH (22:55)
[2021-08-14] MEDS: CLINDAMYCIN PHOSPHATE IV 600 MG in IV DEXTROSE 5% 100 ML IV SCH (22:56)
[2021-08-14] MEDS: GABAPENTIN 100 MG CAPSULE GT SCH (22:56)
--- NOTE | 2021-08-14 23:02 | NUR ---
PT IN BED EYES CLOSED, NO SOB OR LABORED BREATHING.
--- NOTE | 2021-08-14 23:48 | NUR ---
PT NOTED TO BE SOILED, PROVIDED PT WITH PROPER PERINEAL CARE, NOW NOTED TO BE CLEAN AND COMFORTABLE.
--- NOTE | 2021-08-14 23:55 | NUR ---
REPORT GIVEN TO JOSIE NIXON.
[2021-08-15] VITALS (11 sets, daily range): BP systolic 100–136; BP diastolic 34–42
--- NOTE | 2021-08-15 00:42 | NUR ---
Pt. admitted to [facility]/tele , under care of Dr. Mart Dx: anemia Belongs List completed Transportation accompanied by RT.
[2021-08-15] MEDS: IPRATROPIUM BROMIDE 0.5 MG/2.5 ML NEBU NEB SCH ×4 (01:50→19:14)
--- NOTE | 2021-08-15 02:36 | NUR ---
PATIENT ON CONT HARDIN VENT WITH PORTEX # [address] AND SECURED, VENT SETTINGS, A/C 14, 600ML, PEEP5, 40%, PT DOES ASSIST AT TIMES, SUCTION THICK PALE YELL TINGE SECRETIONS, AND SUCTION MOUTH WITH YASNKAUER, VERY PROD, PT IS AWAKE, NO VENT CHANGES MADE, ALL VENT ALARMS GOOD, AMBU BAG AT BEDSIDE, PULSE OXY CONT IN ROOM, SAT 98%. NEB INLINE X 1 WITH ATROVENT . Ronnell PALACIOSP Addendum: 08/15/21 at 0238 by CHRISTINE CHACKO RT Amended: Links added.
--- NOTE | 2021-08-15 05:20 | NUR ---
Pt admitted to room 302; admission procedures done; placed on tele and continuous pulse ox; tallked to bood bank and made sure that he received the order for blood; no blood available at this time per Jose, from the lab; GTF started; dressing to neck mass wound done; aspirations precautions observed;
[2021-08-15] MEDS ORDERED: NITROGLYCERIN 0.4 MG/TAB BOTTLE SL PRN (05:33)
[2021-08-15] MEDS ORDERED: CLINDAMYCIN PHOSPHATE 600 MG/4 ML VIAL ONE (05:38)
[2021-08-15] MEDS ORDERED: METRONIDAZOLE 500 MG/NS 100ML 100 ML IV ONE (05:39)
[2021-08-15 05:40] LABS: MEAN CORPUSCULAR HEMOGLOBIN 33.4 uug (23.8-33.4); MEAN CORPUSCULAR VOLUME 96.5 fL (73.0-96.2); PLATELET COUNT (AUTO) 190 K/uL (152-348)
[2021-08-15] MEDS: CLINDAMYCIN PHOSPHATE IV 600 MG in IV DEXTROSE 5% 100 ML IV SCH ×3 (05:49→21:42)
[2021-08-15] MEDS: METRONIDAZOLE 500 MG/NS 100ML 500 MG in PREMIXED 1 EACH IV SCH ×2 (05:49→15:05)
[2021-08-15 06:00] LABS: HEMATOCRIT 20.9 % (36.7-47.1)
[2021-08-15 06:16] LABS: ALANINE AMINOTRANSFERASE 16 U/L (16-63); ALKALINE PHOSPHATASE 99 U/L (50-136); ASPARTATE AMINOTRANSFERASE 18 U/L (15-37); BILIRUBIN,TOTAL 0.4 mg/dL (0.2-1.0); CARBON DIOXIDE 25 mmol/L (21-32); CHLORIDE 98 mmol/L (98-107); CREATININE 4.9 mg/dL (0.6-1.3); GLUCOSE 94 mg/dL (74-106); MAGNESIUM 2.2 mg/dL (1.8-2.4); PHOSPHOROUS 4.7 mg/dL (2.5-4.9); POTASSIUM 3.6 mmol/L (3.5-5.1); TOTAL PROTEIN, SERUM 7.1 g/dL (6.4-8.2)
[2021-08-15 06:29] LABS: UREA NITROGEN, BLOOD 100 mg/dL (7-18)
[2021-08-15] MEDS: NEPRO 1000 ML GT PRN (06:44)
--- NOTE | 2021-08-15 08:00 | NUR ---
AWAKE ALERT AND ABLE TO VERBALIZE NEEDS, CONTINUE VENT SETTINGS SATURATING 100%. SR ON MONITOR
[2021-08-15] MEDS: PANTOPRAZOLE SODIUM 40 MG VIAL IV SCH (08:02)
[2021-08-15] MEDS: GABAPENTIN 100 MG CAPSULE GT SCH ×2 (08:02→16:44)
[2021-08-15] MEDS: FOLIC ACID 1 MG TABLET GT SCH (08:02)
[2021-08-15] MEDS: FOLIC ACID/VITAMIN B COMP W-C TABLET GT SCH (08:02)
[2021-08-15] MEDS: ASCORBIC ACID 500 MG TABLET GT SCH (08:02)
[2021-08-15] MEDS: MIRALAX 17 GM POWD.PACK GT SCH (08:03)
[2021-08-15] MEDS: CALCITONIN,SALMON,SYNTHETIC 3.7 ML SPRAY.PUMP NS SCH (08:04)
[2021-08-15] MEDS: DOCUSATE SODIUM 100 MG/10 ML LIQUID UDC PO SCH (08:04)
[2021-08-15] MEDS: ISOSORBIDE DINITRATE 20 MG TABLET GT SCH ×2 (08:07→20:08)
--- NOTE | 2021-08-15 09:56 | NUR ---
WOUND CARE CONSULT: PT PRESENTS WITH RT NECK MASS AND OPEN WOUND WELL SACRAL SCARRING, PRESENT ON ADMISSION. SURGICAL CONSULT CALLED TO DR IQRA BLOCK. RECOMMENDATIONS MADE FOR SKIN PROTECTION AND WOUND CARE. DISCUSSED WITH NURSING STAFF. MD IN AGREEMENT WITH PLAN OF CARE.
--- NOTE | 2021-08-15 11:56 | NUR ---
BLOOD TRANSFUSION STARTED SLOWLY VIA RIGHT UPPER ARM MIDLINE. OBSERVED
[2021-08-15] MEDS: ACETAMINOPHEN ES 500 MG TABLET GT PRN ×2 (14:10→20:09)
--- NOTE | 2021-08-15 14:28 | NUR ---
NO REACTION FROM BLOOD TRANSFUSION, CONTINUE WITH BLOOD TRANSFUSION ORDERED
[2021-08-15] MEDS: GABAPENTIN 300 MG CAPSULE GT SCH (16:43)
[2021-08-15] MEDS: CEFEPIME HCL 2 G in IV DEXTROSE 5% 100 ML IV SCH (16:44)
[2021-08-15 16:45] LABS: IRON, SERUM 23 ug/dL (50-175)
[2021-08-15 16:58] LABS: FERRITIN 637 ng/mL (26-388)
--- NOTE | 2021-08-15 17:19 | NUR ---
blood transfusion completed without reaction. observed
--- NOTE | 2021-08-15 19:14 | NUR ---
Pt rec'd on Cobos on settings of A/C 14, VT 450, PEEP +8 and FIO2-40%. Portex 7 is patent and secure. BVM and B/U Portex 7 are at bedside. No resp. distress noted. Pt to be monitored throughout the shift, PRN SX and adm'd resp neb tx's per MD orders. Cobos alarm parameters have been checked and remain audible.
--- NOTE | 2021-08-15 20:00 | NUR ---
Received patient lying in bed. AAOx2-3. Able to make needs known. Nods head yes or no. Aphasic. Trach to vent in place. Large tumor on neck area visible. GT feeding infusing. PICC line on right upper arm and peripheral IV on right hand intact and patent. NSR on tele with HR of 62/min. Needs assessed and attended to. Safety measure initiated and call light within reached.
[2021-08-15] MEDS: Z GUARD REMEDY PASTE 57 GM TUBE TOP SCH (20:08)
[2021-08-15] MEDS: DOXAZOSIN 2 MG TABLET GT SCH (20:12)
[2021-08-15] MEDS: METRONIDAZOLE 500 MG TABLET GT SCH (21:41)
[2021-08-16] MEDS: IPRATROPIUM BROMIDE 0.5 MG/2.5 ML NEBU NEB SCH ×4 (00:30→19:02)
[2021-08-16 00:38] VITALS: BP 138/43
[2021-08-16] MEDS: NEPRO 1000 ML GT PRN (00:45)
[2021-08-16 04:00] VITALS: BP 156/55
[2021-08-16] MEDS: CLINDAMYCIN PHOSPHATE IV 600 MG in IV DEXTROSE 5% 100 ML IV SCH ×3 (05:04→23:22)
[2021-08-16] MEDS: METRONIDAZOLE 500 MG TABLET GT SCH ×3 (05:04→23:21)
--- NOTE | 2021-08-16 06:17 | NUR ---
Patient slept well last night. Suction secretions PRN. GT feeding well tolerated. No adverse effect noted from IV and PO antibiotics.
[2021-08-16 06:42] LABS: HEMATOCRIT 23.6 % (36.7-47.1); MEAN CORPUSCULAR HEMOGLOBIN 32.7 uug (23.8-33.4); MEAN CORPUSCULAR VOLUME 94.9 fL (73.0-96.2); PLATELET COUNT (AUTO) 175 K/uL (152-348)
[2021-08-16 07:00] LABS: ALANINE AMINOTRANSFERASE 20 U/L (16-63); ALKALINE PHOSPHATASE 140 U/L (50-136); ASPARTATE AMINOTRANSFERASE 23 U/L (15-37); BILIRUBIN,TOTAL 0.3 mg/dL (0.2-1.0); CARBON DIOXIDE 24 mmol/L (21-32); CHLORIDE 100 mmol/L (98-107); CREATININE 5.1 mg/dL (0.6-1.3); GLUCOSE 128 mg/dL (74-106); MAGNESIUM 2.2 mg/dL (1.8-2.4); PHOSPHOROUS 4.9 mg/dL (2.5-4.9); POTASSIUM 3.1 mmol/L (3.5-5.1); VANCOMYCIN,RANDOM 12.1 ug/mL (18.0-26.0)
[2021-08-16 07:04] LABS: UREA NITROGEN, BLOOD 115 mg/dL (7-18)
--- NOTE | 2021-08-16 08:00 | NUR ---
pt resting in bed, pt with trach, right side wound covered with mepilex and xeroform, pt able to communicate needs. bed low and locked, call light within reach, pt has gt in place, running nepro at 60ml/hr for 18hrs. will continue to monitor.
[2021-08-16] MEDS: FOLIC ACID 1 MG TABLET GT SCH (08:39)
[2021-08-16] MEDS: GABAPENTIN 100 MG CAPSULE GT SCH ×2 (08:39→17:44)
[2021-08-16] MEDS: ISOSORBIDE DINITRATE 20 MG TABLET GT SCH ×2 (08:51→23:21)
[2021-08-16] MEDS: MIRALAX 17 GM POWD.PACK GT SCH (08:51)
[2021-08-16] MEDS: FOLIC ACID/VITAMIN B COMP W-C TABLET GT SCH (08:51)
[2021-08-16] MEDS: ASCORBIC ACID 500 MG TABLET GT SCH (08:51)
[2021-08-16] MEDS: PANTOPRAZOLE SODIUM 40 MG VIAL IV SCH (08:51)
[2021-08-16] MEDS: ACETAMINOPHEN ES 500 MG TABLET GT PRN (08:52)
[2021-08-16] MEDS: Z GUARD REMEDY PASTE 57 GM TUBE TOP SCH ×2 (08:52→23:21)
[2021-08-16] MEDS: CALCITONIN,SALMON,SYNTHETIC 3.7 ML SPRAY.PUMP NS SCH ×2 (08:58→11:42)
[2021-08-16] MEDS: DOCUSATE SODIUM 100 MG/10 ML LIQUID UDC PO SCH (09:10)
[2021-08-16] MEDS ORDERED: POTASSIUM CHLORIDE 50 ML IV SCH (10:00)
--- NOTE | 2021-08-16 10:00 | NUR ---
Authorization for medical information obtained, [facility] contacted, waiting for medical info to be faxed over.
[2021-08-16 11:54] VITALS: BP 119/39
--- NOTE | 2021-08-16 13:00 | NUR ---
nepro off at 1300 on at 1900.
[2021-08-16 16:00] VITALS: BP 120/33
--- NOTE | 2021-08-16 16:46 | NUR ---
medical records from [facility] have been faxed over, hospitalist made aware.
[2021-08-16] MEDS: CEFEPIME HCL 2 G in IV DEXTROSE 5% 100 ML IV SCH (18:20)
[2021-08-16] MEDS: GABAPENTIN 300 MG CAPSULE GT SCH (18:20)
--- NOTE | 2021-08-16 19:05 | NUR ---
Patient received on [employer] Cobos on settings of A/C 14, VT 450, PEEP +8 and FIO2-40%. Portex 7 is patent and secure. Resusc. bag and Backup Portex 7 are at bedside. No resp. distress noted. Pt to be monitored throughout the shift, PRN SX and adm'd resp neb tx's per MD orders. Cobos alarm parameters have been checked and remain audible.
--- NOTE | 2021-08-16 19:30 | NUR ---
Received patient lying in bed. AAOx2-3. Trach to vent in place. Large tumor on neck area visible. GT feeding infusing. PICC line on right upper arm and peripheral IV on right hand intact and patent. NSR on tele with HR of 77/min. Needs assessed and attended to. Safety measure initiated and call light within reached.
--- NOTE | 2021-08-16 19:55 | NUR ---
fingernail technician arrived. Will start dialysis.
[2021-08-16 20:00] VITALS: BP 150/56
[2021-08-16] MEDS ORDERED: VANCOMYCIN IV 1,250 MG in IV DEXTROSE 5% 250 ML IV PRN (21:00)
--- NOTE | 2021-08-16 23:18 | NUR ---
Dialysis completed. 2L out per dialysis nurse Jose. Latest BP 121/50, HR 72.
[2021-08-16] MEDS: DOXAZOSIN 2 MG TABLET GT SCH (23:21)
[2021-08-17] VITALS: BP 131/54
[2021-08-17] MEDS: ACETAMINOPHEN ES 500 MG TABLET GT PRN ×2 (00:29→14:43)
[2021-08-17] MEDS: IPRATROPIUM BROMIDE 0.5 MG/2.5 ML NEBU NEB SCH ×4 (00:30→20:25)
[2021-08-17] MEDS ORDERED: VANCOMYCIN IV 1,250 MG in IV DEXTROSE 5% 250 ML IV ONE (01:00)
[2021-08-17] MEDS: TRAMADOL HCL 50 MG TABLET GT PRN (04:31)
[2021-08-17 04:56] VITALS: BP 105/45
[2021-08-17] MEDS: METRONIDAZOLE 500 MG TABLET GT SCH ×3 (05:02→21:01)
[2021-08-17] MEDS: CLINDAMYCIN PHOSPHATE IV 600 MG in IV DEXTROSE 5% 100 ML IV SCH ×3 (05:02→21:02)
[2021-08-17] MEDS: NEPRO 1000 ML GT PRN (05:08)
--- NOTE | 2021-08-17 06:36 | NUR ---
Patient calm and comfortable. In no apparent distress. Trach with vent intact. GT feeding and flushing well tolerated. No adverse effect noted from IV and PO antibiotics.
[2021-08-17 07:45] VITALS: BP 148/42
[2021-08-17 07:55] LABS: HEMATOCRIT 23.3 % (36.7-47.1); MEAN CORPUSCULAR HEMOGLOBIN 33.7 uug (23.8-33.4); MEAN CORPUSCULAR VOLUME 94.4 fL (73.0-96.2); PLATELET COUNT (AUTO) 168 K/uL (152-348)
--- NOTE | 2021-08-17 08:00 | NUR ---
received change of shift report, pt in bed resting. no change in vent settings. pt has low grade fever of 99.7, pt given tylenol and cooling measures per night assistant. will continue to monitor. pt incont of b/b, pt awake and alert, GT tube feeding. will continue to monitor.
[2021-08-17 08:06] LABS: HEPATITIS B SURFACE AG Negative (Negative)
[2021-08-17 08:19] LABS: CARBON DIOXIDE 25 mmol/L (21-32); CHLORIDE 96 mmol/L (98-107); CREATININE 3.1 mg/dL (0.6-1.3); GLUCOSE 114 mg/dL (74-106); MAGNESIUM 1.9 mg/dL (1.8-2.4); PHOSPHOROUS 3.2 mg/dL (2.5-4.9); POTASSIUM 3.7 mmol/L (3.5-5.1); UREA NITROGEN, BLOOD 56 mg/dL (7-18)
[2021-08-17] MEDS: PANTOPRAZOLE SODIUM 40 MG VIAL IV SCH (08:43)
[2021-08-17] MEDS: ASCORBIC ACID 500 MG TABLET GT SCH (08:44)
[2021-08-17] MEDS: GABAPENTIN 100 MG CAPSULE GT SCH ×2 (08:44→17:10)
[2021-08-17] MEDS: FOLIC ACID 1 MG TABLET GT SCH (08:44)
[2021-08-17] MEDS: ISOSORBIDE DINITRATE 20 MG TABLET GT SCH ×2 (08:52→20:12)
[2021-08-17] MEDS: FOLIC ACID/VITAMIN B COMP W-C TABLET GT SCH (08:52)
[2021-08-17] MEDS: Z GUARD REMEDY PASTE 57 GM TUBE TOP SCH ×2 (08:53→20:12)
[2021-08-17] MEDS: MIRALAX 17 GM POWD.PACK GT SCH (08:53)
[2021-08-17] MEDS: DOCUSATE SODIUM 100 MG/10 ML LIQUID UDC PO SCH (08:53)
[2021-08-17] MEDS: CALCITONIN,SALMON,SYNTHETIC 3.7 ML SPRAY.PUMP NS SCH (08:57)
[2021-08-17 11:38] VITALS: BP 101/36
--- NOTE | 2021-08-17 13:00 | NUR ---
gt feeding turned off at 1300 to be turned back on at 1900
--- NOTE | 2021-08-17 14:00 | NUR ---
pt temp rising, 100.2, cooling measures in place. will continue to monitor.
[2021-08-17 16:32] VITALS: BP 91/46
[2021-08-17] MEDS: CEFEPIME HCL 1 G in IV DEXTROSE 5% 50 ML IV SCH (17:12)
[2021-08-17] MEDS: GABAPENTIN 300 MG CAPSULE GT SCH (17:52)
--- NOTE | 2021-08-17 20:00 | NUR ---
Received patient lying in bed. AAOx2-3. Trach to vent in place. Carroll cath on right upper chest area with dressing intact. GT feeding infusing. PICC line on right upper arm and peripheral IV on right hand intact and patent. Sinus missael on tele with HR of 58/min. Safety measure initiated and call light within reached.
[2021-08-17] MEDS: DOXAZOSIN 2 MG TABLET GT SCH (20:11)
[2021-08-17 20:34] VITALS: BP 119/44
--- NOTE | 2021-08-17 21:32 | NUR ---
PATIENT ON CONT HARDIN VENT WITH PORTEX @[address] AND SECURED,WITH CURRENT VENT SETTINGS, A.C 14, 600ML, PEEP5, FIO2 @ 40%, SUCTIONED LIGHT PALE YELL TINGE SECRETIONS, PATIENT DOES SUCTION HIS MOUTH WITH DONNA CHOPRA WELL, Q6 NEB INLINE WITH ATROVENT , ALL VENT ALARMS GOOD, AMBU BAG t bedside, change HME . Ronnell CHACKO CENTRAL OFFICE OPERATOR Addendum: 08/17/21 at 2132 by CHRISTINE CHACKO RT Amended: Links added.
[2021-08-18] VITALS: BP 122/34
[2021-08-18] MEDS: IPRATROPIUM BROMIDE 0.5 MG/2.5 ML NEBU NEB SCH ×4 (00:33→20:18)
[2021-08-18] MEDS: ACETAMINOPHEN ES 500 MG TABLET GT PRN ×3 (01:17→23:34)
[2021-08-18] MEDS: METRONIDAZOLE 500 MG TABLET GT SCH ×3 (05:03→21:12)
[2021-08-18] MEDS: CLINDAMYCIN PHOSPHATE IV 600 MG in IV DEXTROSE 5% 100 ML IV SCH ×3 (05:03→21:12)
[2021-08-18] MEDS: PANTOPRAZOLE ORAL SUSPENSION 40 MG SUSPDR.PKT GT SCH (05:06)
[2021-08-18] MEDS ORDERED: VANCOMYCIN IV 500 MG in IV DEXTROSE 5% 100 ML IV PRN (05:45)
[2021-08-18] MEDS: NEPRO 1000 ML GT PRN (06:11)
--- NOTE | 2021-08-18 06:41 | NUR ---
Patient slept well last night. Pt able to suction secretions PRN. NO adverse reaction noted form IV and PO antibiotics. Afebrile. GT feeding and flushing well tolerated. NSR on tele with HR of 80/min. Needs attended to and met. Safety measure maintained and call light within reached.
[2021-08-18 07:47] LABS: HEMATOCRIT 23.2 % (36.7-47.1); MEAN CORPUSCULAR HEMOGLOBIN 32.9 uug (23.8-33.4); MEAN CORPUSCULAR VOLUME 95.2 fL (73.0-96.2); PLATELET COUNT (AUTO) 158 K/uL (152-348)
[2021-08-18 08:00] VITALS: BP 107/23
--- NOTE | 2021-08-18 08:00 | NUR ---
RESTING COMFORTABLY IN BED NO SS OF ACUTE PAIN. SATURATING 100% 0 14-600-40%-5 VENT SETTINGS. SR ON MONITOR
[2021-08-18 08:36] LABS: CARBON DIOXIDE 26 mmol/L (21-32); CHLORIDE 92 mmol/L (98-107); CREATININE 4.2 mg/dL (0.6-1.3); GLUCOSE 118 mg/dL (74-106); POTASSIUM 3.6 mmol/L (3.5-5.1); UREA NITROGEN, BLOOD 77 mg/dL (7-18)
[2021-08-18] MEDS: GABAPENTIN 100 MG CAPSULE GT SCH ×2 (08:44→17:12)
[2021-08-18] MEDS: DOCUSATE SODIUM 100 MG/10 ML LIQUID UDC PO SCH (08:44)
[2021-08-18] MEDS: MIRALAX 17 GM POWD.PACK GT SCH (08:44)
[2021-08-18] MEDS: ISOSORBIDE DINITRATE 20 MG TABLET GT SCH ×2 (08:45→20:35)
[2021-08-18] MEDS: FOLIC ACID/VITAMIN B COMP W-C TABLET GT SCH (08:46)
[2021-08-18] MEDS: FOLIC ACID 1 MG TABLET GT SCH (08:46)
[2021-08-18] MEDS: ASCORBIC ACID 500 MG TABLET GT SCH (08:46)
[2021-08-18] MEDS: CALCITONIN,SALMON,SYNTHETIC 3.7 ML SPRAY.PUMP NS SCH ×2 (08:47→17:13)
[2021-08-18] MEDS: Z GUARD REMEDY PASTE 57 GM TUBE TOP SCH ×2 (08:51→20:35)
[2021-08-18 11:34] VITALS: BP 114/36
--- NOTE | 2021-08-18 12:15 | NUR ---
HEMODIALYSIS STARTED AT BEDSIDE.
--- NOTE | 2021-08-18 15:10 | NUR ---
HEMODIALYSIS COMPLETED TOOK OUT 1L OF FLUID
--- NOTE | 2021-08-18 15:27 | NUR ---
COMPLETE BED BATH DONE PATIENT TOLERTED WELL.
[2021-08-18 16:19] VITALS: BP 112/38
[2021-08-18] MEDS ORDERED: CALCITONIN,SALMON,SYNTHETIC 3.7 ML SPRAY.PUMP NS SCH (17:00)
[2021-08-18] MEDS: CEFEPIME HCL 1 G in IV DEXTROSE 5% 50 ML IV SCH (17:13)
[2021-08-18] MEDS: GABAPENTIN 300 MG CAPSULE GT SCH (17:13)
[2021-08-18] MEDS: MORPHINE SULFATE 2 MG/1 ML DISP.SYRIN IV PRN (18:04)
--- NOTE | 2021-08-18 18:04 | NUR ---
medicated for generalized znd neck pain and observed
[2021-08-18 19:53] VITALS: BP 148/40
[2021-08-18] MEDS: TRAMADOL HCL 50 MG TABLET GT PRN (20:31)
[2021-08-18] MEDS: DOXAZOSIN 2 MG TABLET GT SCH (20:33)
--- NOTE | 2021-08-18 21:47 | NUR ---
PATIENT ON CONT VENT WITH PORTEX # [address] AND SECURED, PT AWAKE AT TIMES, AND FOLLOWS VERBAL COMMANDS, VENT SETTINGS, A.C 14 , 600ML, PEEP5, 40% , PT DOES ASSIST AT TIMES, GOOD COUGH EFFORT, SUCTION MOUTH WITH YANKAUER, CLEAN TRACH, ORAL CARE N TRACH CARE DONE, NEB INLINE Q6 HOURS WITH ATROVENT , CHANGE HME AND MULLEN, PULSE OXY CONT AT BEDSIDE @ 99%.Ronnell PALACIOSP Addendum: 08/18/21 at 2154 by CHRISTINE CHACKO RT Amended: Links added.
[2021-08-19] VITALS (7 sets, daily range): BP systolic 107–157; BP diastolic 32–46
[2021-08-19] MEDS: IPRATROPIUM BROMIDE 0.5 MG/2.5 ML NEBU NEB SCH ×4 (00:30→20:00)
[2021-08-19] MEDS: CLINDAMYCIN PHOSPHATE IV 600 MG in IV DEXTROSE 5% 100 ML IV SCH ×3 (05:56→21:39)
[2021-08-19] MEDS: PANTOPRAZOLE ORAL SUSPENSION 40 MG SUSPDR.PKT GT SCH (06:05)
[2021-08-19] MEDS: METRONIDAZOLE 500 MG TABLET GT SCH ×3 (06:05→21:38)
[2021-08-19 06:37] LABS: HEMATOCRIT 22.5 % (36.7-47.1); MEAN CORPUSCULAR HEMOGLOBIN 32.8 uug (23.8-33.4); MEAN CORPUSCULAR VOLUME 95.5 fL (73.0-96.2); PLATELET COUNT (AUTO) 155 K/uL (152-348)
[2021-08-19 07:17] LABS: ALANINE AMINOTRANSFERASE 17 U/L (16-63); ALKALINE PHOSPHATASE 141 U/L (50-136); ASPARTATE AMINOTRANSFERASE 21 U/L (15-37); BILIRUBIN,TOTAL 0.3 mg/dL (0.2-1.0); CARBON DIOXIDE 25 mmol/L (21-32); CHLORIDE 94 mmol/L (98-107); CREATININE 3.5 mg/dL (0.6-1.3); GLUCOSE 112 mg/dL (74-106); MAGNESIUM 1.6 mg/dL (1.8-2.4); PHOSPHOROUS 4.4 mg/dL (2.5-4.9); POTASSIUM 3.3 mmol/L (3.5-5.1); TOTAL PROTEIN, SERUM 6.9 g/dL (6.4-8.2); UREA NITROGEN, BLOOD 60 mg/dL (7-18)
--- NOTE | 2021-08-19 08:00 | NUR ---
RESTING COMFORTABLY IN BED WITH CURRENT VENT SETTING 14-600-40-5 SATURATING 100%. TOLERATING NEPHRO FEEDING NO RESIDUAL NOTED. CLOSELY MONITORED
[2021-08-19] MEDS: FOLIC ACID 1 MG TABLET GT SCH (08:58)
[2021-08-19] MEDS: GABAPENTIN 100 MG CAPSULE GT SCH ×2 (08:58→17:00)
[2021-08-19] MEDS: FOLIC ACID/VITAMIN B COMP W-C TABLET GT SCH (08:58)
[2021-08-19] MEDS: ASCORBIC ACID 500 MG TABLET GT SCH (08:59)
[2021-08-19] MEDS: ISOSORBIDE DINITRATE 20 MG TABLET GT SCH ×2 (08:59→20:28)
[2021-08-19] MEDS: MIRALAX 17 GM POWD.PACK GT SCH (08:59)
[2021-08-19] MEDS: DOCUSATE SODIUM 100 MG/10 ML LIQUID UDC PO SCH (09:00)
[2021-08-19] MEDS: CALCITONIN,SALMON,SYNTHETIC 3.7 ML SPRAY.PUMP NS SCH ×2 (09:00→17:01)
[2021-08-19] MEDS: Z GUARD REMEDY PASTE 57 GM TUBE TOP SCH ×2 (09:01→20:30)
[2021-08-19] MEDS ORDERED: POTASSIUM CHLORIDE 20 MEQ POWDER PACKET GT ONE ×2 (10:00)
[2021-08-19] MEDS ORDERED: MAGNESIUM OXIDE 400 MG TABLET GT ONE (10:00)
[2021-08-19] MEDS ORDERED: MAGNESIUM SULFATE/D5W 100 ML IV SCH (10:00)
--- NOTE | 2021-08-19 10:00 | NUR ---
MIRALAX AND COLACE NOT GIVEN PATIENT WITH LOOSE STOOL X2 LARE AMOUNT
[2021-08-19] MEDS: ACETAMINOPHEN ES 500 MG TABLET GT PRN (10:34)
--- NOTE | 2021-08-19 11:00 | NUR ---
SEEN BY DR CABRAELS FOR NEPHRO FOLLOW-UP, SEE NOTES
[2021-08-19] MEDS: GABAPENTIN 300 MG CAPSULE GT SCH (17:00)
[2021-08-19] MEDS: CEFEPIME HCL 1 G in IV DEXTROSE 5% 50 ML IV SCH (17:00)
--- NOTE | 2021-08-19 18:07 | NUR ---
PATIENT REMAINS ON SR ON MONITOR, CONTINUE WITH IV ANTIBIOTIC NO REACTION NOTED. NOTED SLIGHT BRIGHT RED BLEEDING TUMOR RIGHT SIDE OF NECK, PRESSURE DRESSING APPLIED. OBSERVED
[2021-08-19] MEDS: NEPRO 1000 ML GT PRN (19:00)
[2021-08-19] MEDS: TRAMADOL HCL 50 MG TABLET GT PRN (20:28)
[2021-08-19] MEDS: DOXAZOSIN 2 MG TABLET GT SCH (20:29)
--- NOTE | 2021-08-19 23:54 | NUR ---
PATIENT ON CONT HARDIN VENT WITH PORTEX # [address] AND SECURED, WITH CURRENT VENT SETTINGS, A/C 14, 600ML, PEEP5, 40%, PT DOES ASSIST AT TIMES, SUCTIONED LIGHT PALE YELL TINGE SECRETIONS, AND SUCTION MOUTH WITH DONNA CHOPRA WELL, CHANGE HME, CHECK CUFF, ALL VENT ALARMS GOOD, NO VENT CHANGES MADE, AMBU BAG AT BEDSIDE, PT STABLE, CONT PULSE OXY AT BEDSIDE.Ronnell PALACIOSP Addendum: 08/19/21 at 2357 by CHRISTINE CHACKO RT Amended: Links added.
[2021-08-20] VITALS: BP 126/45
[2021-08-20] MEDS: METRONIDAZOLE 500 MG TABLET GT SCH ×2 (01:53→13:06)
[2021-08-20] MEDS: IPRATROPIUM BROMIDE 0.5 MG/2.5 ML NEBU NEB SCH ×3 (02:44→13:35)
[2021-08-20 04:00] VITALS: BP 139/45
[2021-08-20] MEDS: MORPHINE SULFATE 2 MG/1 ML DISP.SYRIN IV PRN (04:40)
[2021-08-20] MEDS: CLINDAMYCIN PHOSPHATE IV 600 MG in IV DEXTROSE 5% 100 ML IV SCH (05:10)
[2021-08-20] MEDS: PANTOPRAZOLE ORAL SUSPENSION 40 MG SUSPDR.PKT GT SCH (05:11)
--- NOTE | 2021-08-20 08:00 | NUR ---
Pt is in no acute distress. Right chin wound with purulent drainage. Vent as ordered pt saturating @ 97%. Pt denies any c/o pain. Turn pt q 2 hrs implemented. Carroll cath and right brachial midline intact and covered with tegaderm. Call light is within reach.
[2021-08-20 08:39] VITALS: BP 130/38
[2021-08-20] MEDS: DOCUSATE SODIUM 100 MG/10 ML LIQUID UDC PO SCH (09:00)
[2021-08-20] MEDS: MIRALAX 17 GM POWD.PACK GT SCH (09:00)
[2021-08-20] MEDS: FOLIC ACID/VITAMIN B COMP W-C TABLET GT SCH (09:36)
[2021-08-20] MEDS: ASCORBIC ACID 500 MG TABLET GT SCH (09:39)
[2021-08-20] MEDS: GABAPENTIN 100 MG CAPSULE GT SCH ×2 (09:39→17:15)
[2021-08-20] MEDS: FOLIC ACID 1 MG TABLET GT SCH (09:39)
[2021-08-20] MEDS: ISOSORBIDE DINITRATE 20 MG TABLET GT SCH (09:41)
[2021-08-20] MEDS: Z GUARD REMEDY PASTE 57 GM TUBE TOP SCH (09:41)
[2021-08-20] MEDS: CALCITONIN,SALMON,SYNTHETIC 3.7 ML SPRAY.PUMP NS SCH ×2 (09:42→17:15)
[2021-08-20] MEDS: TRAMADOL HCL 50 MG TABLET GT PRN (13:06)
[2021-08-20] MEDS ORDERED: CEFE1FRO IV (13:10)
[2021-08-20] MEDS ORDERED: METR500T GT (13:10)
[2021-08-20 16:00] VITALS: BP 139/48
[2021-08-20] MEDS: GABAPENTIN 300 MG CAPSULE GT SCH (18:00)
[2021-08-20] MEDS: CEFEPIME HCL 1 G in IV DEXTROSE 5% 50 ML IV SCH (18:00)
--- NOTE | 2021-08-20 18:10 | NUR ---
Report given to Felicia GALINDO from [facility] and EMT/RT from [facility]. Picture updated of right chin, sacral, and BLEs. PT is in no acute distress. Vent as ordered. Faxed over paperwork to [facility] secondary to paperworks left here at station. Carroll cath on right upper chest wall and right midline intact. Pt tolerated his feeding no residual noted.
== END 2021-08-20 18:10 | disposition hospice, home (50) | DRG 870 ==
LOC: ER 12:40 → TRANSITION 20:31 → TELE3 20:32 → TELE-TD3 08-15 01:27 → TELE3 08-20 10:25
PROVIDERS: ADMIT Internal Medicine; ATTEND Internal Medicine
PROC: 30233N1 Transfusion of Nonautologous Red Blood Cells into Peripheral Vein, Percutaneous Approach (ICD-10-PCS; principal; 2021-08-15)
PROC: 5A1955Z Respiratory Ventilation, Greater than 96 Consecutive Hours (ICD-10-PCS; 2021-08-15)
PROC: 5A1D70Z Performance of Urinary Filtration, Intermittent, Less than 6 Hours Per Day (ICD-10-PCS; 2021-08-16)
DX: A41.9 Sepsis, unspecified organism (principal); N18.6 End stage renal disease; E43 Unspecified severe protein-calorie malnutrition; G92.8 Other toxic encephalopathy; J69.0 Pneumonitis due to inhalation of food and vomit; L03.221 Cellulitis of neck; D68.59 Other primary thrombophilia; E87.1 Hypo-osmolality and hyponatremia; I50.32 Chronic diastolic (congestive) heart failure; Z99.11 Dependence on respirator [ventilator] status; C79.89 Secondary malignant neoplasm of other specified sites; I13.2 Hypertensive heart and chronic kidney disease with heart failure and with stage 5 chronic kidney disease, or end stage renal disease; J96.10 Chronic respiratory failure, unspecified whether with hypoxia or hypercapnia; D63.8 Anemia in other chronic diseases classified elsewhere; Z93.0 Tracheostomy status; D53.9 Nutritional anemia, unspecified; E78.5 Hyperlipidemia, unspecified; E87.6 Hypokalemia; G89.29 Other chronic pain; Z20.822 Contact with and (suspected) exposure to COVID-19; Z99.2 Dependence on renal dialysis; Z74.01 Bed confinement status; M19.90 Unspecified osteoarthritis, unspecified site; Z66 Do not resuscitate; Z87.891 Personal history of nicotine dependence; Z93.1 Gastrostomy status; Z85.01 Personal history of malignant neoplasm of esophagus; R13.10 Dysphagia, unspecified; E83.9 Disorder of mineral metabolism, unspecified; I35.8 Other nonrheumatic aortic valve disorders; C06.9 Malignant neoplasm of mouth, unspecified; E83.52 Hypercalcemia; L89.159 Pressure ulcer of sacral region, unspecified stage; N40.0 Benign prostatic hyperplasia without lower urinary tract symptoms; Z86.14 Personal history of Methicillin resistant Staphylococcus aureus infection
CPT/HCPCS: 36415; 71045; 83550; 83605; 83735; 84100; 85025; 86140; 86803; 86850; 86900; 86901; 86920; 87040; 87070; 87340; 87806; 94002; 94003; 94640; 94664; 94760; A6209; A9150; C9113; G0378; J0692; J2270; J3370; J3475; J3480; J3490; J3590; J7030; J7040; J7050; J7060; P9016

== ENCOUNTER 2021-08-31 11:48 | Inpatient (IN) | payer MEDICARE, OTHER ==
[~2021-08-31] VITALS: Ht 162.6 cm; Wt 63.5 kg
[~2021-08-31 11:48] MED LIST changes: -ACET-73 GT; -ASCO500P18 GT; -ATOR40TA GT; -BENA40TA8 GT; +CEFE1FRO IV; -CELE200C GT; -FOLI0.8T2 GT; -FOLI1TAB94 GT; -HYDR100T27 GT; -ISOS40TA19 GT; -METO25TA6 GT; +METR500T GT; -OMEP40CA21 GT; +ONDA4TAB11 GT
--- NOTE | 2021-08-31 12:08 | NUR ---
Patient has a trach. RT was at bedside and placed pt on vent.
[2021-08-31 12:21] LABS: MEAN CORPUSCULAR HEMOGLOBIN 33.4 uug (23.8-33.4); MEAN CORPUSCULAR VOLUME 100.8 fL (73.0-96.2); PLATELET COUNT (AUTO) 214 K/uL (152-348)
[2021-08-31 12:34] LABS: HEMATOCRIT 17.9 % (36.7-47.1)
[2021-08-31 12:37] LABS: ALANINE AMINOTRANSFERASE 16 U/L (16-63); ALKALINE PHOSPHATASE 170 U/L (50-136); ASPARTATE AMINOTRANSFERASE 21 U/L (15-37); BILIRUBIN,DIRECT 0.2 mg/dL (0.0-0.2); BILIRUBIN,TOTAL 0.4 mg/dL (0.2-1.0); CARBON DIOXIDE 25 mmol/L (21-32); CHLORIDE 101 mmol/L (98-107); CREATININE 5.1 mg/dL (0.6-1.3); GLUCOSE 126 mg/dL (74-106); POTASSIUM 3.7 mmol/L (3.5-5.1); TOTAL PROTEIN, SERUM 6.7 g/dL (6.4-8.2)
[2021-08-31 12:40] LABS: UREA NITROGEN, BLOOD 94 mg/dL (7-18)
--- NOTE | 2021-08-31 12:40 | NUR ---
Call placed to [facility] for admission per request, Ophelia Schmid on-call and will be paged to call back per service.
[2021-08-31] MEDS ORDERED: IV NORMAL SALINE 1000 ML BAG IV ONE (12:45)
--- NOTE | 2021-08-31 12:50 | NUR ---
Called ([phone]) per request, left message for call back.
--- NOTE | 2021-08-31 16:11 | NUR ---
Blood transfusion started.
--- NOTE | 2021-08-31 19:23 | NUR ---
Report given to Kat GALINDO
--- NOTE | 2021-08-31 19:30 | NUR ---
Assumed care of patient from day shift JOSIE Javed. Blood transfusion finishing up. Patient with trach to vent. Suctioned secretion PRN.
[2021-08-31 20:00] LABS: BAND % (MANUAL) 16 % (0-10); LYMPHOCYTES % (MANUAL) 6 % (20-40); METAMYELOCYTES % 1 % (0-1); MONOCYTES % (MANUAL) 1 % (2-10); NEUTROPHILS % (MANUAL) 76 % (42-75)
[2021-08-31] MEDS ORDERED: BISACODYL 10 MG SUPP.RECT RC PRN (20:00)
[2021-08-31] MEDS ORDERED: ONDANSETRON ODT 4 MG TAB.RAPDIS GT PRN (20:00)
[2021-08-31] MEDS ORDERED: TRAMADOL HCL 50 MG TABLET GT PRN (20:00)
[2021-08-31] MEDS ORDERED: FLEET ENEMA 133 ML BOTTLE RC PRN (20:00)
[2021-08-31] MEDS ORDERED: ACETAMINOPHEN 325 MG TABLET-SA PATIENTS-PAIN ONLY PO PRN (20:00)
[2021-08-31] MEDS ORDERED: MAG HYDROX/AL HYDROX/SIMETH 30 ML LIQUID UDC GT PRN (20:00)
[2021-08-31] MEDS ORDERED: NITROGLYCERIN 0.4 MG/TAB BOTTLE SL PRN (20:00)
[2021-08-31] MEDS ORDERED: IPRATROPIUM BROMIDE 0.5 MG/2.5 ML NEBU NEB PRN (20:00)
--- NOTE | 2021-08-31 22:45 | NUR ---
Patient noted with temp of 103.[address] Zee and ordered blood culture and rocephin IV. Cooling measure provided and will given Tylenol 650mg via GT per order.
[2021-08-31] MEDS ORDERED: ACETAMINOPHEN 325 MG TABLET ONE (22:53)
[2021-08-31] MEDS ORDERED: CEFTRIAXONE 1 G in IV DEXTROSE 5% 50 ML IV ONE (23:00)
[2021-08-31] MEDS ORDERED: CEFTRIAXONE /D5W 50ML IVPB **ER PYXIS IV ONE (23:01)
--- NOTE | 2021-08-31 23:15 | NUR ---
Latest temp. 100.2 orally. Continue with cooling measures. Suction secretions PRN.
--- NOTE | 2021-08-31 23:30 | NUR ---
Pt. admitted to [place], room 314, under care of Dr. Thorne. Report given to JOSIE Saucedo. Belongings List completed.
[2021-09-01] VITALS (10 sets, daily range): BP systolic 103–129; BP diastolic 30–55
--- NOTE | 2021-09-01 00:10 | NUR ---
PATIENT ON HARDIN VENT WITH PORTEX # [address] AND SECURED, SUCTIONED BLOODY TINGE SECRETIONS, LAVAGE WITH NS, CHECK CUFF, VENT SETTINGS, A/C14 500ML, PEEP5,40%, PT DOES ASSIST AT TIMES, SEMI ALERT, ALL VENT ALARMS GOOD, AMBU BAG AT BEDSIDE. Ronnell PALACIOSP Addendum: 09/01/21 at 0013 by CHRISTINE CHACKO RT Amended: Links added.
--- NOTE | 2021-09-01 00:30 | NUR ---
received pt fr ER; pt is febvrile at 102.7; pt was given tylenol in ER; cooling measures started; suctioned secretions; will hold blood transfusion for now till afebrile; fever reported to JEET TALBERT and JACOB TRISTAN;
--- NOTE | 2021-09-01 08:30 | NUR ---
BLOOD TRANSFUSSION COMPLETED ORDERED WITH NO ADVERSE OR ALLERGIC REACTIONS AT THIS TIME.
[2021-09-01] MEDS ORDERED: DOCUSATE SODIUM 100 MG CAPSULE PO SCH (09:00)
[2021-09-01] MEDS: GABAPENTIN 100 MG CAPSULE GT SCH ×3 (09:12→20:14)
[2021-09-01] MEDS: MIRALAX 17 GM POWD.PACK GT SCH (09:12)
[2021-09-01] MEDS: DOCUSATE SODIUM 100 MG/10 ML LIQUID UDC GT SCH (09:20)
[2021-09-01 10:25] LABS: HEMATOCRIT 26.1 % (36.7-47.1); MEAN CORPUSCULAR HEMOGLOBIN 32.2 uug (23.8-33.4); MEAN CORPUSCULAR VOLUME 97.8 fL (73.0-96.2); PLATELET COUNT (AUTO) 190 K/uL (152-348)
--- NOTE | 2021-09-01 10:30 | NUR ---
AIR BATTLE MANAGER HERE AND DIALYSIS STARTED ORDERED.
[2021-09-01 10:34] LABS: ALANINE AMINOTRANSFERASE 13 U/L (16-63); ALKALINE PHOSPHATASE 171 U/L (50-136); ASPARTATE AMINOTRANSFERASE 20 U/L (15-37); BILIRUBIN,TOTAL 0.4 mg/dL (0.2-1.0); CARBON DIOXIDE 24 mmol/L (21-32); CHLORIDE 102 mmol/L (98-107); CREATININE 5.1 mg/dL (0.6-1.3); GLUCOSE 114 mg/dL (74-106); MAGNESIUM 2.7 mg/dL (1.8-2.4); POTASSIUM 3.9 mmol/L (3.5-5.1); TOTAL PROTEIN, SERUM 6.5 g/dL (6.4-8.2)
[2021-09-01 11:30] LABS: UREA NITROGEN, BLOOD 105 mg/dL (7-18)
--- NOTE | 2021-09-01 13:00 | NUR ---
DIALYSIS COMPLETED ORDERED AND PER THE TECH 1450 ML REMOVED AND HE TOLERATED WELL
[2021-09-01] MEDS: ACETAMINOPHEN 325 MG TABLET PO PRN (16:38)
--- NOTE | 2021-09-01 16:38 | NUR ---
TEMP AT THIS TIME IS 100.[address] GUTIERREZ NOTIFIED WITH ORDERS.
[2021-09-01] MEDS ORDERED: MEROPENEM 500 MG in IV NORMAL SALINE 50 ML IV SCH (16:45)
[2021-09-01] MEDS: DOXAZOSIN 2 MG TABLET GT SCH (17:42)
[2021-09-01] MEDS ORDERED: VANCOMYCIN IV 1,000 MG in IV DEXTROSE 5% 250 ML IV SCH (18:00)
--- NOTE | 2021-09-01 18:35 | NUR ---
IVPB VANCOMICIN IS IN PROGRESS ORDERED WITH NO ADVERSE OR ALLERGIC REACTIONS AT THIS TIME.TURNED AND REPOSITIONED MADE COMFORTABLE GT PATENT NO S/S OF REGURGITATION OR EMESIS NOTED.
[2021-09-01] MEDS: MEROPENEM 500 MG in IV NORMAL SALINE 50 ML IV SCH (19:45)
[2021-09-02] VITALS: BP 93/30
[2021-09-02 04:03] VITALS: BP_SYST 111; BP_SYST 92; BP_DIAS 28; BP_DIAS 40
[2021-09-02] MEDS ORDERED: VANCOMYCIN IV 500 MG in IV DEXTROSE 5% 100 ML IV PRN (06:00)
[2021-09-02 07:20] LABS: HEMATOCRIT 23.4 % (36.7-47.1); MEAN CORPUSCULAR VOLUME 95.9 fL (73.0-96.2); PLATELET COUNT (AUTO) 186 K/uL (152-348)
[2021-09-02 07:42] LABS: CARBON DIOXIDE 30 mmol/L (21-32); CHLORIDE 97 mmol/L (98-107); CREATININE 3.4 mg/dL (0.6-1.3); GLUCOSE 128 mg/dL (74-106); MAGNESIUM 2.1 mg/dL (1.8-2.4); PHOSPHOROUS 3.4 mg/dL (2.5-4.9); POTASSIUM 3.5 mmol/L (3.5-5.1); UREA NITROGEN, BLOOD 58 mg/dL (7-18)
--- NOTE | 2021-09-02 08:30 | NUR ---
RECEIVED PATIENT IN BED WITH GT FEEDINGS ORDERED TRACH INTACT WITH VENT WITH SETTINGS ORDERED.NO SOB AT THIS TIME SUCTIONED NEEDED.ON FIRST STEP PALOMA TURNED AND REPOSITIONED Q2H HEELS FLOATED MAX ASSIST FOR ALL ADL MADE COMFORTABLE WILL CONTINUE TO OBSERVE
[2021-09-02] MEDS: DOCUSATE SODIUM 100 MG/10 ML LIQUID UDC GT SCH (09:10)
[2021-09-02] MEDS: ACETAMINOPHEN 325 MG TABLET PO PRN (09:10)
[2021-09-02] MEDS: GABAPENTIN 100 MG CAPSULE GT SCH ×3 (09:10→20:19)
[2021-09-02] MEDS: MIRALAX 17 GM POWD.PACK GT SCH (09:10)
[2021-09-02 12:56] VITALS: BP 120/38
[2021-09-02 16:00] VITALS: BP 128/43
--- NOTE | 2021-09-02 16:24 | NUR ---
TOLERATED FEEDINGS ORDERED FEEDINGS OFF AT THIS TIME ORDERED WITH NO S/S OF REGURGITATION OR EMESIS AT THIS MAX ASSIST FOR ALL ADL MADE COMFORTABLE WILL CONTINUE TO OBSERVE.
[2021-09-02] MEDS: DOXAZOSIN 2 MG TABLET GT SCH (17:10)
[2021-09-02] MEDS: MEROPENEM 500 MG in IV NORMAL SALINE 50 ML IV SCH (20:13)
[2021-09-02] MEDS: TRAMADOL HCL 50 MG TABLET GT PRN (20:14)
[2021-09-02] MEDS: TEMAZEPAM 15 MG CAPSULE PO PRN (20:36)
[2021-09-02 20:42] VITALS: BP 116/44
--- NOTE | 2021-09-02 20:43 | NUR ---
PATIENT ENDORSED ON HARDIN VENT, TRACHED WITH PORTEX # 7 CUFFED TUBE. AIRWAY PATENT AND SECURED. SUCTIONED MODERATE AMOUNTS OF JIMENEZ BEIGE/ BLOOD TINGED SECRETIONS, LAVAGE WITH NS. TOLERATING ORDERED VENT SETTINGS, A/C 14 500ML, PEEP +5,40%, ALL VENT ALARMS ASSESSED: ON/AUDIBLE. CONT. PULSE OX AT BEDSIDE. WILL CONTINUE TO MONITOR.
[2021-09-03 00:30] VITALS: BP 136/46
[2021-09-03 04:49] VITALS: BP 123/46
--- NOTE | 2021-09-03 07:30 | NUR ---
PATIENT RECEIVED IN BED ASLEEP BUT OPENED EYES UPON ENTERING THE ROOM HE IS ALERT HE HAS TRACH WITH VENTILATOR WITH NO SOB AT THIS TIME.ALL NEEDS ANTICIPATED AND SATISFIED MAX ASSIST FOR ALL ADL REPOSITIONED FOR COMFORT ON FIRST STEP PALOMA FOR DECUB MANAGEMENT AFEBRILE AT THIS TIME GT FEEDINGS IN PROGRESS ORDERED WITH NO REGURGITATION OR EMESIS AFEBRILE MADE COMFORTABLE WILL CONTINUE TO OBSERVE.
[2021-09-03] MEDS: MIRALAX 17 GM POWD.PACK GT SCH (09:18)
[2021-09-03] MEDS: DOCUSATE SODIUM 100 MG/10 ML LIQUID UDC GT SCH (09:18)
[2021-09-03] MEDS: GABAPENTIN 100 MG CAPSULE GT SCH ×3 (09:21→20:46)
[2021-09-03 11:14] VITALS: BP 106/53
--- NOTE | 2021-09-03 13:25 | NUR ---
WOUND CARE CONSULT: PT SLEEPING AT THIS TIME. REVIEWED CHART, NURSING DOCUMENTATION, PHOTOS AND SPOKE WITH NURSING STAFF. 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 DR IQRA BLOCK NOTIFIED OF SURGICAL CONSULT REQUEST. RECOMMENDATIONS MADE FOR WOUND CARE AND SKIN PROTECTION. DISCUSSED WITH NURSING STAFF. MD IN AGREEMENT WITH PLAN OF CARE.
[2021-09-03] MEDS ORDERED: REMEDY ESSENTIAL ZINC PASTE 113 GM TOP PRN (13:30)
[2021-09-03 15:11] VITALS: BP 111/48
--- NOTE | 2021-09-03 16:46 | NUR ---
DR GUTIERREZ AWARE THAT PATIENT IS DRAINING A LOT FROM HIS NECK MASS SEROUS SANGIONOUS WITH ORDERS AND NOTED
[2021-09-03] MEDS: DOXAZOSIN 2 MG TABLET GT SCH (17:38)
--- NOTE | 2021-09-03 18:00 | NUR ---
SUCTIONED SPUTUM AND RIGHT SIDE OF NECK MASS DRAINAGE SENT TO THE LAB ORDERED TOLERATING HIS FEEDINGS ORDERED WITH NO REGURGITATION OR EMESIS.
--- NOTE | 2021-09-03 19:20 | NUR ---
Pt rec'd on Cobos settings of AC 14, VT 500, PEEP +5 and FIO2-40%. No resp. distress noted and pt appears to be tolerating settings well. Portex 7 is patent and secure; B/U Portex 7 and BVM are both at bedside. Pt to be monitored throughout the shift and PRN SX. Cobos alarm parameters have been checked and remain audible.
[2021-09-03] MEDS: MEROPENEM 500 MG in IV NORMAL SALINE 50 ML IV SCH (20:45)
[2021-09-03] MEDS: REMEDY ESSENTIAL ZINC PASTE 113 GM TOP SCH (20:46)
[2021-09-03] MEDS: TRAMADOL HCL 50 MG TABLET GT PRN (20:52)
[2021-09-03 21:02] VITALS: BP 140/60
[2021-09-03] MEDS: TEMAZEPAM 15 MG CAPSULE PO PRN (21:03)
[2021-09-04 00:11] VITALS: BP 123/52
[2021-09-04 04:31] VITALS: BP 125/54
[2021-09-04] MEDS: ACETAMINOPHEN 325 MG TABLET PO PRN ×2 (04:53→20:33)
[2021-09-04 07:33] LABS: HEMATOCRIT 23.3 % (36.7-47.1); MEAN CORPUSCULAR HEMOGLOBIN 31.4 uug (23.8-33.4); MEAN CORPUSCULAR VOLUME 96.6 fL (73.0-96.2); PLATELET COUNT (AUTO) 193 K/uL (152-348)
--- NOTE | 2021-09-04 07:38 | NUR ---
RECEIVED PATIENT ON FIRST STEP [place] WITH HOB UP WITH TRACH AND VENT SETTINGS PER ORDER SUCTIONED NEEDED NO SOB AT THIS TIME RIGHT NECK MASS STILL WITH BLOODY DRAINAGE WITH TX IN PROGRESS ORDERED GT FEEDINGS IN PROGRESS WITH NO S/SOF REGURGITATION REPOSITIONED FOR COMFORT Q2H PERMA CATH INTACT AT THIS TIME MADE COMFORTABLE WILL CONTINUE TO OBSERVE.
--- NOTE | 2021-09-04 07:40 | NUR ---
RECEIVED LAB REPORT FROM THE LAB BUN IS 103 AND ALB IS [address] PATHAK AWARE PATIENT IS SCHEDULED FOR DIALYSIS TODAY.
[2021-09-04 07:47] LABS: ALANINE AMINOTRANSFERASE 31 U/L (16-63); ALKALINE PHOSPHATASE 214 U/L (50-136); ASPARTATE AMINOTRANSFERASE 30 U/L (15-37); BILIRUBIN,TOTAL 0.3 mg/dL (0.2-1.0); CARBON DIOXIDE 30 mmol/L (21-32); CHLORIDE 98 mmol/L (98-107); CREATININE 4.5 mg/dL (0.6-1.3); GLUCOSE 115 mg/dL (74-106); MAGNESIUM 2.3 mg/dL (1.8-2.4); POTASSIUM 3.4 mmol/L (3.5-5.1); TOTAL PROTEIN, SERUM 6.1 g/dL (6.4-8.2)
[2021-09-04 08:01] LABS: VANCOMYCIN,RANDOM 12.4 ug/mL (18.0-26.0)
[2021-09-04 08:21] LABS: UREA NITROGEN, BLOOD 103 mg/dL (7-18)
[2021-09-04] MEDS: GABAPENTIN 100 MG CAPSULE GT SCH ×3 (08:49→20:33)
[2021-09-04] MEDS: DOCUSATE SODIUM 100 MG/10 ML LIQUID UDC GT SCH (08:49)
[2021-09-04] MEDS: MIRALAX 17 GM POWD.PACK GT SCH (08:50)
[2021-09-04] MEDS: REMEDY ESSENTIAL ZINC PASTE 113 GM TOP SCH ×2 (08:50→20:40)
[2021-09-04 11:07] LABS: CALCITRIOL VIT D,1,25 DIHYDROX 20.5 pg/mL (19.9-79.3)
[2021-09-04 12:01] VITALS: BP 106/48
[2021-09-04] MEDS: TRAMADOL HCL 50 MG TABLET GT PRN (12:13)
--- NOTE | 2021-09-04 12:16 | NUR ---
DIALYSIS IS IN PROGRESS AT THIS TIME AND PER THE DIALYSIS NURSE PATIENT IS FACIAL GRIMACING AND NODDED HEAD WHEN ASKED IF HE WAS IN PAIN MEDICATED WITH ULTRAM ORDERED AT THIS TIME MADE COMFORTABLE WILL CONTINUE TO OBSERVE.
--- NOTE | 2021-09-04 13:05 | NUR ---
DIALYSIS COMPLETED ORDERED AND 2000 ML REMOVED AND PATIENT TOLERATED IT WELL.
--- NOTE | 2021-09-04 13:27 | NUR ---
PATIENT SEEN AND EXAMINED BY DR CANTU INFECTIOUS DISEASE WITH ORDER TO SEND A STOOL SPECIMEN FOR C DIFF UNABLE TO SEND AT THIS TIME BECAUSE THE FORM TO FILL OUT IS ASKING IF PATIENT IS ON ANY LAXATIVES PATIENT IS ON DSS AND MIR[employer] SO I NOTIFIED HER AND SHE STATED TO CANCEL THE C DIFF ORDER AT THIS TIME AND NOTED.
[2021-09-04] MEDS ORDERED: VANCOMYCIN IV 1,000 MG in IV DEXTROSE 5% 250 ML IV ONE (14:30)
--- NOTE | 2021-09-04 15:24 | NUR ---
DR MUHAMMAD HERE AND SEEN PATIENT WITH NEW ORDERS AND NOTED.
[2021-09-04] MEDS ORDERED: POTASSIUM CHLORIDE 20 MEQ POWDER PACKET GT ONE (15:30)
[2021-09-04 15:47] VITALS: BP 134/44
--- NOTE | 2021-09-04 17:30 | NUR ---
NOTED PROFUSE BLEEDING FROM PATIENTS RIGHT NECK MASS BLOOD COMING OUT WITH BURBLES PATIENT IS ALERT STATED THAT HE IS OKAY CALLED AND NOTIFIED DR MUHAMMAD NAD SHE STATED TO APPLY PRESSURE DRESSING.PATIENT IS A DNR ASKED DR MUHAMMAD TO AT LEAST UPDATE THE PATIENTS JOSSUE ON PATIENT DETERIORATING CONDITION.
--- NOTE | 2021-09-04 17:45 | NUR ---
BLOOD PRESSURE IS AT 129/51 PULSE IS 77 WILL CONTINUE TO OBSERVE.
--- NOTE | 2021-09-04 18:30 | NUR ---
PRESSURE ON THE RIGHT NECK MASS SEEMS TO BE HOLDING BECAUSE NO OVERT BLEEDING NOTICEABLE AT THIS TIME WILL CONTINUE TO OBSERVE AND PROVIDE COMFORT.
[2021-09-04] MEDS: DOXAZOSIN 2 MG TABLET GT SCH (18:45)
--- NOTE | 2021-09-04 19:30 | NUR ---
Received pt awake. Pt in no acute distress. Iv intact. Safety and comfort provided.Mendez catheter intact and draining well. Pt on mechanical vent. Safety and comfort provided. Will continue to monitor.
[2021-09-04 20:00] VITALS: BP 106/36
[2021-09-04] MEDS: MEROPENEM 500 MG in IV NORMAL SALINE 50 ML IV SCH (20:32)
--- NOTE | 2021-09-04 20:33 | NUR ---
Tylenol prn 650 mg given for pt. Cooling measures done.
[2021-09-05 00:37] VITALS: BP 105/35
[2021-09-05] MEDS: TRAMADOL HCL 50 MG TABLET GT PRN (03:38)
[2021-09-05 04:00] VITALS: BP 120/35
--- NOTE | 2021-09-05 05:48 | NUR ---
at 0338h Ultram Prn given to pt for pain. Pt tolerated it well.after 30 minutes medication effective as pt is sleeping.
--- NOTE | 2021-09-05 06:25 | NUR ---
Pt slept intermittently. Prescribed medication given and pt tolerated it well. Suction prn.Dressing changed. Pt on sinus rhythm. Pt in no acute distress. Safety and comfort provided. Will endorse to incoming nurse for continuity of care.
[2021-09-05 07:04] LABS: HEMATOCRIT 22.6 % (36.7-47.1); MEAN CORPUSCULAR HEMOGLOBIN 33.1 uug (23.8-33.4); MEAN CORPUSCULAR VOLUME 98.5 fL (73.0-96.2); PLATELET COUNT (AUTO) 175 K/uL (152-348)
[2021-09-05 07:25] LABS: CARBON DIOXIDE 31 mmol/L (21-32); CHLORIDE 99 mmol/L (98-107); CREATININE 3.1 mg/dL (0.6-1.3); GLUCOSE 115 mg/dL (74-106); MAGNESIUM 2.2 mg/dL (1.8-2.4); PHOSPHOROUS 4.8 mg/dL (2.5-4.9); POTASSIUM 3.6 mmol/L (3.5-5.1); UREA NITROGEN, BLOOD 54 mg/dL (7-18)
[2021-09-05] MEDS: MIRALAX 17 GM POWD.PACK GT SCH (09:04)
[2021-09-05] MEDS: REMEDY ESSENTIAL ZINC PASTE 113 GM TOP SCH ×2 (09:05→20:48)
[2021-09-05] MEDS: GABAPENTIN 100 MG CAPSULE GT SCH ×3 (09:05→20:47)
[2021-09-05] MEDS: DOCUSATE SODIUM 100 MG/10 ML LIQUID UDC GT SCH (09:05)
[2021-09-05] MEDS ORDERED: NEPRO 1000 ML GT PRN (10:15)
[2021-09-05 11:55] VITALS: BP 120/74
--- NOTE | 2021-09-05 12:19 | NUR ---
received call from Kentrell Lux all questions answered, Kentrell requesting call from MD Lata MD notified .
[2021-09-05] MEDS ORDERED: CELLULOSE,OXIDIZED 4X8 MC ONE (15:30)
[2021-09-05 16:09] VITALS: BP 113/35
[2021-09-05] MEDS: DOXAZOSIN 2 MG TABLET GT SCH (17:09)
[2021-09-05] MEDS: ACETAMINOPHEN 325 MG TABLET PO PRN (17:32)
[2021-09-05 20:17] VITALS: BP 109/30
[2021-09-05] MEDS: MEROPENEM 500 MG in IV NORMAL SALINE 50 ML IV SCH (20:47)
[2021-09-06] VITALS (11 sets, daily range): BP systolic 90–129; BP diastolic 31–57
--- NOTE | 2021-09-06 02:32 | NUR ---
PATIENT ON CONT HARDIN VENT WITH PORTEX 7, VENT SETTINGS, A/C 14, 500ML, PEEP5, 40%, SUCTIONED LIGHT PALE YELL TINGE SECRETIONS, AND SUCTION MOUTH WITH YANKAUER, NO VENT CHANGES MADE, ALL VENT ALARMS GOOD, AmadaOXY AT BEDSIDE, PT SEMI AWAKE AT TIMES, MOVES HEAD SIDE TO SIDE AT TIMES.Rnonell PALACIOSP Addendum: 09/06/21 at 0236 by CHRISTINE CHACKO RT Amended: Links added.
--- NOTE | 2021-09-06 04:50 | NUR ---
Patient with Axillary temp of 103.0. Cooling measures started and Tylenol via GT administered. Patient suctioned as needed via closed system. Tolerates procedure well. Able to nod to answer questions, Denies any pain. Right neck mass dry dressing changed, no active bleeding to site. Addendum: 09/06/21 at 0522 by AUSTIN LANDON RN Dr. Nicola Hernandez made aware with no new orders.
[2021-09-06] MEDS: ACETAMINOPHEN 325 MG TABLET PO PRN ×2 (04:52→17:20)
--- NOTE | 2021-09-06 06:00 | NUR ---
Patient being turned and repositioned. Noted to have one episode of emesis, milky consistency. Oral cavity suctioned, place on left side and Trach suctioned. Patient in no other distress. HOB up and GT feeding paused. Will endorse to next shift.
[2021-09-06 07:41] LABS: MEAN CORPUSCULAR HEMOGLOBIN 32.9 uug (23.8-33.4); MEAN CORPUSCULAR VOLUME 97.3 fL (73.0-96.2); PLATELET COUNT (AUTO) 175 K/uL (152-348)
[2021-09-06 07:44] LABS: CARBON DIOXIDE 28 mmol/L (21-32); CHLORIDE 98 mmol/L (98-107); CREATININE 4.3 mg/dL (0.6-1.3); GLUCOSE 108 mg/dL (74-106); MAGNESIUM 2.2 mg/dL (1.8-2.4); PHOSPHOROUS 5.8 mg/dL (2.5-4.9); POTASSIUM 3.6 mmol/L (3.5-5.1); UREA NITROGEN, BLOOD 78 mg/dL (7-18); VANCOMYCIN,RANDOM 19.2 ug/mL (18.0-26.0)
[2021-09-06 08:18] LABS: HEMATOCRIT 19.1 % (36.7-47.1)
[2021-09-06] MEDS: DOCUSATE SODIUM 100 MG/10 ML LIQUID UDC GT SCH (08:46)
[2021-09-06] MEDS: MIRALAX 17 GM POWD.PACK GT SCH (08:46)
[2021-09-06] MEDS: GABAPENTIN 100 MG CAPSULE GT SCH ×3 (08:46→20:03)
[2021-09-06] MEDS: TRAMADOL HCL 50 MG TABLET GT PRN (08:47)
[2021-09-06] MEDS: REMEDY ESSENTIAL ZINC PASTE 113 GM TOP SCH ×2 (08:52→20:07)
[2021-09-06] MEDS ORDERED: VANCOMYCIN IV 500 MG in IV DEXTROSE 5% 100 ML IV ONE (14:00)
[2021-09-06] MEDS: HYDROCODONE/APAP 5-325MG TABLET GT PRN (14:09)
--- NOTE | 2021-09-06 16:00 | NUR ---
received call from blood bank that blood is ready, pt with temp 103.1 at this time, will monitor temp and once temp is normal will get blood.
[2021-09-06] MEDS: DOXAZOSIN 2 MG TABLET GT SCH (17:21)
--- NOTE | 2021-09-06 17:30 | NUR ---
MD Guido notified of patient with temp of 103.1.
--- NOTE | 2021-09-06 18:32 | NUR ---
Md dunn notified of families PAWAN ewing request to have patient placed on hospice care.
[2021-09-06 19:26] LABS: BAND % (MANUAL) 10 % (0-10); LYMPHOCYTES % (MANUAL) 2 % (20-40); MONOCYTES % (MANUAL) 3 % (2-10); NEUTROPHILS % (MANUAL) 85 % (42-75)
[2021-09-06] MEDS: MEROPENEM 500 MG in IV NORMAL SALINE 50 ML IV SCH (20:02)
--- NOTE | 2021-09-06 23:26 | NUR ---
Received pt awake on bed with family member at bedside, afebrile 98.5. He is non-verbal, but nods and shakes head when asked. He is on cont vent with Portex size 7, suctioned done by RT. IV line on R hand G#22 patent and intact. Dressing on R tumor area, dry and intact. On g-tube feeding, new bottle of Nephro started at 2100H. No episode of N/V/D. BT started at 2210H, still ongoing, no reaction noted. Vital signs checked per protocol, remains afebrile. All needs attended. Kept comfortable. Safety precautions observed. Frequent visual checks done. Will continue to monitor.
[2021-09-07] VITALS: BP 97/49
--- NOTE | 2021-09-07 00:31 | NUR ---
PATIENT ON CONT HARDIN VENT WITH PORTEX [address] AND SECURED , SUCTIONED X 3 WITH LIGHT PALE YELL TINGE SECRETIONS, SLIGHT BLOODY TINGE SECRETIONS , PT NOT VERY RESPONSIVE, VERBALLY, SUCTION MOUTH GENTLY, CLEAN TRACH , VENT SETTINGS, A/C 14, 500ML, PEEP5, 30%, PT DOES ASSIST AT TIMES, CHECK CUFF, CHANGE HME ,ALL VENT ALARMS GOOD, NO VENT CHANGES MADE AT THIS TIME , Ronnell CHACKO RCP Addendum: 09/07/21 at 0035 by CHRISTINE CHACKO RT Amended: Links added.
[2021-09-07 01:25] VITALS: BP 95/48
--- NOTE | 2021-09-07 01:30 | NUR ---
BT done, no reactions noted, tolerated well. Pt comfortably asleep.
[2021-09-07 04:00] VITALS: BP 109/38
--- NOTE | 2021-09-07 05:45 | NUR ---
pt slept intermittently throughout the night. Dressing on R jaw changed. Pt noted with BM x1 and minimal urine. Remains afebrile throughout the shift. All needs attended. Call light placed within reach. Frequent visual checks done.
[2021-09-07 07:16] LABS: CARBON DIOXIDE 32 mmol/L (21-32); CHLORIDE 97 mmol/L (98-107); CREATININE 2.9 mg/dL (0.6-1.3); GLUCOSE 107 mg/dL (74-106); PHOSPHOROUS 4.7 mg/dL (2.5-4.9); POTASSIUM 3.3 mmol/L (3.5-5.1); UREA NITROGEN, BLOOD 45 mg/dL (7-18)
[2021-09-07 07:19] LABS: HEMATOCRIT 21.6 % (36.7-47.1); MEAN CORPUSCULAR HEMOGLOBIN 31.6 uug (23.8-33.4); MEAN CORPUSCULAR VOLUME 95.9 fL (73.0-96.2); PLATELET COUNT (AUTO) 166 K/uL (152-348)
[2021-09-07] MEDS ORDERED: AMPICILLIN 2 G VIAL IV SCH (09:00)
[2021-09-07] MEDS ORDERED: CEFTAZIDIME 2 GM IV SCH (09:15)
[2021-09-07] MEDS: HYDROCODONE/APAP 5-325MG TABLET GT PRN (09:19)
[2021-09-07] MEDS: GABAPENTIN 100 MG CAPSULE GT SCH ×3 (09:19→20:18)
[2021-09-07] MEDS: MIRALAX 17 GM POWD.PACK GT SCH (09:20)
[2021-09-07] MEDS: DOCUSATE SODIUM 100 MG/10 ML LIQUID UDC GT SCH (09:20)
[2021-09-07] MEDS: REMEDY ESSENTIAL ZINC PASTE 113 GM TOP SCH ×2 (10:03→20:19)
[2021-09-07] MEDS: CEFTAZIDIME 2 G in IV DEXTROSE 5% 100 ML IV SCH (11:02)
[2021-09-07] MEDS: AMPICILLIN 2 G in NS 100 ML IV SCH ×2 (11:24→23:34)
[2021-09-07] MEDS ORDERED: DEXTROSE 5% IV ONE (12:00)
[2021-09-07] MEDS ORDERED: TOBRAMYCIN SULFATE IV ONE (12:00)
[2021-09-07 12:03] VITALS: BP 111/51
[2021-09-07 16:31] VITALS: BP 113/39
[2021-09-07] MEDS: DOXAZOSIN 2 MG TABLET GT SCH (17:51)
[2021-09-07 20:00] VITALS: BP 139/43
[2021-09-07] MEDS: ACETAMINOPHEN 325 MG TABLET PO PRN (22:59)
[2021-09-08] VITALS: BP 108/39
[2021-09-08 04:00] VITALS: BP 108/38
[2021-09-08 07:41] LABS: POTASSIUM 3.4 mmol/L (3.5-5.1)
[2021-09-08 07:42] LABS: CARBON DIOXIDE 32 mmol/L (21-32); CHLORIDE 96 mmol/L (98-107); CREATININE 3.9 mg/dL (0.6-1.3); GLUCOSE 99 mg/dL (74-106); MAGNESIUM 2.3 mg/dL (1.8-2.4); PHOSPHOROUS 5.9 mg/dL (2.5-4.9); UREA NITROGEN, BLOOD 66 mg/dL (7-18)
[2021-09-08 08:09] LABS: MEAN CORPUSCULAR HEMOGLOBIN 32.3 uug (23.8-33.4); MEAN CORPUSCULAR VOLUME 95.2 fL (73.0-96.2); PLATELET COUNT (AUTO) 192 K/uL (152-348)
[2021-09-08 08:40] LABS: HEMATOCRIT 20.9 % (36.7-47.1)
[2021-09-08] MEDS: DOCUSATE SODIUM 100 MG/10 ML LIQUID UDC GT SCH (09:32)
[2021-09-08] MEDS: MIRALAX 17 GM POWD.PACK GT SCH (09:32)
[2021-09-08] MEDS: GABAPENTIN 100 MG CAPSULE GT SCH ×3 (09:33→20:08)
[2021-09-08] MEDS: CEFTAZIDIME 2 G in IV DEXTROSE 5% 100 ML IV SCH (10:26)
[2021-09-08] MEDS: REMEDY ESSENTIAL ZINC PASTE 113 GM TOP SCH ×2 (11:12→20:10)
[2021-09-08 11:20] VITALS: BP 124/42
[2021-09-08] MEDS: AMPICILLIN 2 G in NS 100 ML IV SCH ×2 (11:27→22:31)
[2021-09-08] MEDS: ACETAMINOPHEN 325 MG TABLET PO PRN ×3 (11:33→21:18)
[2021-09-08] MEDS ORDERED: ALBUMIN HUMAN 25% 100 ML IV PRN (13:15)
[2021-09-08] MEDS ORDERED: ALBUMIN HUMAN 25% 100 ML IV SCH (13:22)
[2021-09-08] MEDS ORDERED: TOBRAMYCIN SULFATE IV ONE (15:30)
[2021-09-08] MEDS ORDERED: DEXTROSE 5% IV ONE (15:30)
--- NOTE | 2021-09-08 17:30 | NUR ---
Patient's temp is 100. Tylenol given per MD order and cold compress rendered.
--- NOTE | 2021-09-08 17:58 | NUR ---
Noticed a blood coming from the patient's wound on his neck , pressure dressing applied and notified Dr. Guido. Per Dr. Guido, continue to apply pressure dressing.
[2021-09-08] MEDS: DOXAZOSIN 2 MG TABLET GT SCH (18:00)
[2021-09-08 20:09] VITALS: BP 128/47
[2021-09-09 00:06] VITALS: BP_SYST 110; BP_SYST 135; BP_DIAS 35; BP_DIAS 74
--- NOTE | 2021-09-09 05:30 | NUR ---
pt gtube leaking, tube feeding and small amount of blood discharge found. Stopped tube feeding. No signs of acute distress.
[2021-09-09 06:19] VITALS: BP 111/35
[2021-09-09 06:22] LABS: CARBON DIOXIDE 36 mmol/L (21-32); CHLORIDE 98 mmol/L (98-107); CREATININE 2.4 mg/dL (0.6-1.3); GLUCOSE 99 mg/dL (74-106); MAGNESIUM 2.1 mg/dL (1.8-2.4); PHOSPHOROUS 3.8 mg/dL (2.5-4.9); POTASSIUM 3.3 mmol/L (3.5-5.1); UREA NITROGEN, BLOOD 35 mg/dL (7-18)
[2021-09-09 06:28] LABS: MEAN CORPUSCULAR HEMOGLOBIN 31.9 uug (23.8-33.4); MEAN CORPUSCULAR VOLUME 95.1 fL (73.0-96.2); PLATELET COUNT (AUTO) 180 K/uL (152-348)
[2021-09-09 06:30] LABS: HEMATOCRIT 20.8 % (36.7-47.1)
--- NOTE | 2021-09-09 07:10 | NUR ---
Pt slept intermittently throughout the night. Arousable to name and touch. Nonverbal but able to make needs known by nodding and pointing. Trach Portex size 7, ventilator setting at AC 14, TV 500, Fio2 30% saturating at 98%. IV in R hand intact. Afebrile, 98.9 temp. Permacath in R chest. Gtube feeding leaking and stopped, MD notified. Call lights within reach. Safety measures maintained.
--- NOTE | 2021-09-09 07:50 | NUR ---
Received awake and responsive on ventilator tolerating current settings. Trach is intact and patent. O2 sat noted 97%. No resp distress. No s/sx of pain or facial grimacing. Patient is non verbal but able to nod/shake head briefly. Denies pain. Noted with massive mass around his neck mouth is slightly open. Kerlix wrapping around neck due to episodes of right neck mass bleeding. Gt with abdominal pad around site per endorsement last night also leaking. Dressing is dry at this time. IV on right hand is intact. SR on telemonitor hr 75s. Kept comfortable. Call light and personal belongings within reach.
[2021-09-09] MEDS: MIRALAX 17 GM POWD.PACK GT SCH (08:29)
[2021-09-09] MEDS: DOCUSATE SODIUM 100 MG/10 ML LIQUID UDC GT SCH (08:29)
[2021-09-09] MEDS: GABAPENTIN 100 MG CAPSULE GT SCH ×3 (08:29→20:56)
[2021-09-09] MEDS: REMEDY ESSENTIAL ZINC PASTE 113 GM TOP SCH ×2 (08:30→20:59)
[2021-09-09] MEDS: CEFTAZIDIME 2 G in IV DEXTROSE 5% 100 ML IV SCH (08:59)
[2021-09-09] MEDS ORDERED: ALBUMIN HUMAN 25% 100 ML IV PRN (10:24)
[2021-09-09] MEDS: AMPICILLIN 2 G in NS 100 ML IV SCH ×2 (11:20→23:38)
[2021-09-09 12:21] VITALS: BP 94/34
--- NOTE | 2021-09-09 13:45 | NUR ---
ekg result relayed to dr. dunn no new orders received.
--- NOTE | 2021-09-09 15:11 | NUR ---
Son Kentrell is visiting and wants his sister Juana to be put on responsible republican so she can get info on their father. He says he'll call their sister Katy. No complaints at this time.
[2021-09-09 16:02] VITALS: BP 104/33
[2021-09-09] MEDS: DOXAZOSIN 2 MG TABLET GT SCH (17:25)
--- NOTE | 2021-09-09 18:24 | NUR ---
Treatment to wounds done as ordered. Gt is intact and patent slightly leaking small amount of greenish-white discharge. Pressure dressing applied. Abdomen soft and round bm x 2 done today. Offered pain medication but patient doesn't want it. Dr. Guido is aware. No acute distress. Needs attended. Kept comfortable.
--- NOTE | 2021-09-09 19:30 | NUR ---
PATIENT AWAKE NO SOB NO CHEST PAIN NOTED, ON TELE MONITOR SINUS RHTYHM, DENIES PAIN, NECK DRESSING INTACT, NO ACTIVE BLEEDING NOTED, GTF HELD BY AM RN DUE TO LEAKING, ON VENT TOLERATE WELL, SAT WELL, CONT TO MONITOR.
[2021-09-09 20:30] VITALS: BP 140/42
--- NOTE | 2021-09-09 20:56 | NUR ---
PATIENT GT LEAKING, KERZUMA CUSTOMER SERVICE RECEPTIONIST WAS NOTIFIED WITH ORDER TO STOP FEEDING, NOTHING VIA GT AT THIS TIME. MEDICATION VIA GT HELD AT THIS TIME.
[2021-09-10 00:41] VITALS: BP 113/48
[2021-09-10 04:40] VITALS: BP 122/48
--- NOTE | 2021-09-10 06:31 | NUR ---
PATIENT AWAKE, NO SOB NO CHEST PAIN, TELE MONITOR SINUS RHTYHM, NO COMPLAIN OF PAIN. PATIENT NECK WOUND STILL HAS BLEEDING NOTED, GT CARE DONE, STILL LEAKING WITH BROWNISH COLOR DRAINAGE, CONT TO HOLD FEEDING, AND NO MEDICATION VIA GT AT THIS TIME, CONT TO MONITOR.
[2021-09-10] MEDS ORDERED: TOBRAMYCIN SULFATE IV PRN (07:15)
[2021-09-10] MEDS ORDERED: DEXTROSE 5% IV PRN (07:15)
--- NOTE | 2021-09-10 07:30 | NUR ---
Received awake. Trach intact and patent. No sob noted. GTube continue to be held d/t leaking. IV intact. No infiltration noted. No facial grimacing noted. Call light in reach and functional.
[2021-09-10 08:23] LABS: MEAN CORPUSCULAR HEMOGLOBIN 31.4 uug (23.8-33.4); MEAN CORPUSCULAR VOLUME 96.1 fL (73.0-96.2); PLATELET COUNT (AUTO) 177 K/uL (152-348)
[2021-09-10 08:30] LABS: ALANINE AMINOTRANSFERASE 26 U/L (16-63); ALKALINE PHOSPHATASE 140 U/L (50-136); ASPARTATE AMINOTRANSFERASE 34 U/L (15-37); BILIRUBIN,DIRECT 0.2 mg/dL (0.0-0.2); BILIRUBIN,TOTAL 0.6 mg/dL (0.2-1.0); CARBON DIOXIDE 35 mmol/L (21-32); CHLORIDE 99 mmol/L (98-107); CREATININE 3.2 mg/dL (0.6-1.3); GLUCOSE 71 mg/dL (74-106); MAGNESIUM 1.9 mg/dL (1.8-2.4); PHOSPHOROUS 6.5 mg/dL (2.5-4.9); POTASSIUM 3.4 mmol/L (3.5-5.1); TOTAL PROTEIN, SERUM 5.9 g/dL (6.4-8.2); UREA NITROGEN, BLOOD 48 mg/dL (7-18)
--- NOTE | 2021-09-10 08:30 | NUR ---
Patient desatting to 85%. Suctioned via trach and orally. Replaced finger probe. Called RT and patient fio2 increased to 50%. O2 sat inc to 95%. COnt to monitor.
[2021-09-10 08:54] LABS: HEMATOCRIT 17.5 % (36.7-47.1)
[2021-09-10] MEDS: GABAPENTIN 100 MG CAPSULE GT SCH ×3 (09:00→20:48)
[2021-09-10] MEDS: MIRALAX 17 GM POWD.PACK GT SCH (09:00)
[2021-09-10] MEDS: DOCUSATE SODIUM 100 MG/10 ML LIQUID UDC GT SCH (09:00)
[2021-09-10] MEDS: REMEDY ESSENTIAL ZINC PASTE 113 GM TOP SCH ×2 (09:07→20:48)
--- NOTE | 2021-09-10 09:07 | NUR ---
Meds not given. Gt leaking continue to hold feeding per MD.
[2021-09-10] MEDS: CEFTAZIDIME 2 G in IV DEXTROSE 5% 100 ML IV SCH (09:13)
[2021-09-10] MEDS ORDERED: POTASSIUM CHLORIDE 20 MEQ POWDER PACKET GT ONE (09:45)
[2021-09-10] MEDS: POTASSIUM CHLORIDE 50 ML IV SCH ×2 (10:17→11:00)
--- NOTE | 2021-09-10 11:20 | NUR ---
Dr. dunn roundfarideh updated on patient's condition with order not to give blood transfusion or gi consult until she hears back on what family wants to do. rehabilitation case coordinator aware and is calling the family. will follow up and cont to monitor patient.
[2021-09-10 11:43] VITALS: BP 117/40
--- NOTE | 2021-09-10 13:03 | NUR ---
Per Mimi manager rn case, family will have meeting with MD today at 2pm.
[2021-09-10] MEDS: AMPICILLIN 2 G in NS 100 ML IV SCH ×2 (13:04→22:41)
--- NOTE | 2021-09-10 15:03 | NUR ---
Dr. Guido had facetime meeting with family in the patient's room. Patient will be put in in-patient hospice comfort measures. New order for morphine 2mg q2prn.
--- NOTE | 2021-09-10 15:12 | NUR ---
Clinical Social Work Note ALEX and Dr. Guido conducted a zoom call with patient and his children to discuss beginning in-patient hospice comfort measures. SW explained to patient the details of in-patient hospice comfort measures and asked him to nod yes if he agreed or no if he did not. Per children's request, SW asked patient various times and each time patient nodded yes that he agreed with in-patient hospice comfort measures.
[2021-09-10] MEDS ORDERED: MORPHINE SULFATE 2 MG/1 ML DISP.SYRIN IV PRN (15:15)
[2021-09-10 15:53] VITALS: BP 135/45
--- NOTE | 2021-09-10 17:44 | NUR ---
Received call from Mimi MOORE said pt is [facility] but won't be initiated until family consents. Dr. Guido made aware.
[2021-09-10] MEDS: DOXAZOSIN 2 MG TABLET GT SCH (18:00)
--- NOTE | 2021-09-10 18:25 | NUR ---
Gabriela visiting their father. No complaints at this time.
[2021-09-10] MEDS ORDERED: ACETAMINOPHEN 650 MG SUPP.RECT RC PRN (18:30)
--- NOTE | 2021-09-10 19:30 | NUR ---
Pt in no acute distress. Iv intact. Pt on vent. IV intact. Safety and comfort provided. Will continue to monitor.
[2021-09-10 20:00] VITALS: BP 137/96
[2021-09-11 05:46] VITALS: BP 123/52
--- NOTE | 2021-09-11 06:13 | NUR ---
Pt in no acute distress. Iv intact. Prescribed medication given and pt tolerated it well.Suction prn.Pt turned and repositioned. Pt dressing changed. Safety and comfort provided. All needs are met . Will endorse to incoming nurse for continuity of care.
--- NOTE | 2021-09-11 07:50 | NUR ---
RECEIVED AWAKE AND ALERT NON VERBAL. TOLERATING CURRENT VENT SETTINGS O2 SAT 98%. NO SOB NOTED. PT RUBBING HIS HAND OVER ABDOMEN ASKED IF HE'S IN PAIN AND HE NODDED. DRESSING ON RIGHT NECK MASS INTACT. GTF HELD D/T LEAKING. PT IS KEPT COMFORTABLE. CALL LIGHT IN REACH.
[2021-09-11] MEDS: GABAPENTIN 100 MG CAPSULE GT SCH (09:00)
[2021-09-11] MEDS: MIRALAX 17 GM POWD.PACK GT SCH (09:00)
[2021-09-11] MEDS: DOCUSATE SODIUM 100 MG/10 ML LIQUID UDC GT SCH (09:00)
[2021-09-11] MEDS: REMEDY ESSENTIAL ZINC PASTE 113 GM TOP SCH (09:31)
[2021-09-11] MEDS ORDERED: ACETAMINOPHEN 650 MG/20.3 ML LIQUID UDC GT PRN (09:45)
--- NOTE | 2021-09-11 12:00 | NUR ---
[facility] in the room with family to discuss plans for hospice.
--- NOTE | 2021-09-11 13:20 | NUR ---
Wound treatment done. Reinforced dressing on right neck mass. Suctioned prn. Repositioned prn. Kept comfortable.
--- NOTE | 2021-09-11 16:54 | NUR ---
pt is discharged to hospice for comfort care
[2021-09-12] MEDS ORDERED: levoFLOXacin 750MG/D5W 750 MG in PREMIXED 1 EACH IV SCH (09:00)
== END 2021-09-11 17:02 | disposition hospice, inpatient (51) | DRG 870 ==
LOC: ER 11:49 → MEDSURG3 23:04 → TELE3 23:42 → MEDSURG3 09-10 17:30
PROVIDERS: ADMIT Internal Medicine; ATTEND Internal Medicine
PROC: 5A1955Z Respiratory Ventilation, Greater than 96 Consecutive Hours (ICD-10-PCS; principal; 2021-08-31)
PROC: 30233N1 Transfusion of Nonautologous Red Blood Cells into Peripheral Vein, Percutaneous Approach (ICD-10-PCS; 2021-08-31)
PROC: 5A1D70Z Performance of Urinary Filtration, Intermittent, Less than 6 Hours Per Day (ICD-10-PCS; 2021-09-01)
PROC: 05H533Z Insertion of Infusion Device into Right Subclavian Vein, Percutaneous Approach (ICD-10-PCS; 2021-09-09)
PROC: B546ZZA Ultrasonography of Right Subclavian Vein, Guidance (ICD-10-PCS; 2021-09-09)
PROC: 05H533Z Insertion of Infusion Device into Right Subclavian Vein, Percutaneous Approach (ICD-10-PCS; 2021-09-10)
PROC: B546ZZA Ultrasonography of Right Subclavian Vein, Guidance (ICD-10-PCS; 2021-09-10)
DX: A41.9 Sepsis, unspecified organism (principal); J69.0 Pneumonitis due to inhalation of food and vomit; G92.8 Other toxic encephalopathy; E43 Unspecified severe protein-calorie malnutrition; N18.6 End stage renal disease; L89.153 Pressure ulcer of sacral region, stage 3; J96.10 Chronic respiratory failure, unspecified whether with hypoxia or hypercapnia; D68.59 Other primary thrombophilia; L03.221 Cellulitis of neck; C79.89 Secondary malignant neoplasm of other specified sites; J44.0 Chronic obstructive pulmonary disease with (acute) lower respiratory infection; I50.32 Chronic diastolic (congestive) heart failure; Z99.11 Dependence on respirator [ventilator] status; Z16.21 Resistance to vancomycin; I13.2 Hypertensive heart and chronic kidney disease with heart failure and with stage 5 chronic kidney disease, or end stage renal disease; Z74.09 Other reduced mobility; E78.5 Hyperlipidemia, unspecified; E83.52 Hypercalcemia; E88.09 Other disorders of plasma-protein metabolism, not elsewhere classified; R13.10 Dysphagia, unspecified; Z20.822 Contact with and (suspected) exposure to COVID-19; Z74.01 Bed confinement status; Z66 Do not resuscitate; Z99.2 Dependence on renal dialysis; Z93.1 Gastrostomy status; Z93.0 Tracheostomy status; Z87.891 Personal history of nicotine dependence; N40.0 Benign prostatic hyperplasia without lower urinary tract symptoms; Z51.5 Encounter for palliative care; Z85.01 Personal history of malignant neoplasm of esophagus; I35.8 Other nonrheumatic aortic valve disorders; G89.29 Other chronic pain; M19.90 Unspecified osteoarthritis, unspecified site; D50.0 Iron deficiency anemia secondary to blood loss (chronic); B96.5 Pseudomonas (aeruginosa) (mallei) (pseudomallei) as the cause of diseases classified elsewhere; B95.2 Enterococcus as the cause of diseases classified elsewhere; F10.21 Alcohol dependence, in remission
CPT/HCPCS: 36415; 70030-TC; 71045; 80200; 82652; 83735; 83970; 84100; 85025; 85730; 86140; 86850; 86900; 86901; 86920; 87040; 87070; 87077; 90937; 93005; 94002; 94003; 94760; A4663; A6209; G0378; J0290; J0696; J0713; J1956; J2185; J2270; J3260; J3370; J3480; J3490; J7030; J7040; J7050; J7060; P9016; P9047; Q0162

== ENCOUNTER 2021-09-11 18:10 | Inpatient (IN) | payer OTHER ==
[2021-09-11] MEDS ORDERED: LORAZEPAM 2 MG/1 ML VIAL IV PRN (18:30)
[2021-09-11] MEDS ORDERED: REMEDY ESSENTIAL ZINC PASTE 113 GM TOP PRN (18:45)
[2021-09-11] MEDS ORDERED: SCOPOLAMINE PATCH 1 MG/72 HRS PATCH TD SCH (19:00)
[2021-09-11 20:43] VITALS: BP 125/40
[2021-09-11] MEDS: MORPHINE SULFATE PF IV DRIP 100 MG in IV DEXTROSE 5% 96 ML IV PRN (21:06)
[2021-09-11] MEDS ORDERED: FLEET ENEMA 133 ML BOTTLE RC PRN (22:00)
[2021-09-11] MEDS ORDERED: BISACODYL 10 MG SUPP.RECT RC PRN (22:00)
[2021-09-11] MEDS ORDERED: ONDANSETRON ODT 4 MG TAB.RAPDIS GT PRN (22:00)
[2021-09-11] MEDS ORDERED: TRAMADOL HCL 50 MG TABLET GT PRN (22:00)
[2021-09-11] MEDS ORDERED: IPRATROPIUM BROMIDE 0.5 MG/2.5 ML NEBU NEB PRN (22:00)
[2021-09-11] MEDS: REMEDY ESSENTIAL ZINC PASTE 113 GM TOP SCH (22:38)
[2021-09-12 05:07] VITALS: BP 127/50
[2021-09-12] MEDS ORDERED: MIRALAX 17 GM POWD.PACK GT SCH (09:00)
[2021-09-12] MEDS ORDERED: GABAPENTIN 100 MG CAPSULE GT SCH ×2 (09:00→21:00)
[2021-09-12] MEDS ORDERED: AMLODIPINE 5 MG TABLET GT SCH (09:00)
[2021-09-12] MEDS: REMEDY ESSENTIAL ZINC PASTE 113 GM TOP SCH (09:49)
[2021-09-12 12:00] VITALS: BP 118/33
[2021-09-12] MEDS ORDERED: DOXAZOSIN 2 MG TABLET GT SCH (18:00)
[2021-09-12] MEDS: MORPHINE SULFATE PF IV DRIP 100 MG in IV DEXTROSE 5% 96 ML IV PRN (18:38)
== END 2021-09-12 21:15 | DRG 951 ==
LOC: HOSPICE3 18:10
PROVIDERS: ADMIT Internal Medicine; ATTEND Internal Medicine
PROC: 5A1935Z Respiratory Ventilation, Less than 24 Consecutive Hours (ICD-10-PCS; principal; 2021-09-11)
DX: Z51.5 Encounter for palliative care (principal); A41.9 Sepsis, unspecified organism; J69.0 Pneumonitis due to inhalation of food and vomit; E43 Unspecified severe protein-calorie malnutrition; G92.8 Other toxic encephalopathy; N18.6 End stage renal disease; L89.153 Pressure ulcer of sacral region, stage 3; J96.10 Chronic respiratory failure, unspecified whether with hypoxia or hypercapnia; D68.59 Other primary thrombophilia; I13.2 Hypertensive heart and chronic kidney disease with heart failure and with stage 5 chronic kidney disease, or end stage renal disease; I50.32 Chronic diastolic (congestive) heart failure; L03.221 Cellulitis of neck; Z99.11 Dependence on respirator [ventilator] status; C79.89 Secondary malignant neoplasm of other specified sites; Z74.09 Other reduced mobility; E88.09 Other disorders of plasma-protein metabolism, not elsewhere classified; E78.5 Hyperlipidemia, unspecified; D64.9 Anemia, unspecified; I46.9 Cardiac arrest, cause unspecified; R13.10 Dysphagia, unspecified; Z66 Do not resuscitate; Z87.891 Personal history of nicotine dependence; Z93.1 Gastrostomy status; Z99.2 Dependence on renal dialysis; Z85.01 Personal history of malignant neoplasm of esophagus; G89.29 Other chronic pain; N40.0 Benign prostatic hyperplasia without lower urinary tract symptoms; I35.8 Other nonrheumatic aortic valve disorders; Z93.0 Tracheostomy status; Z68.24 Body mass index [BMI] 24.0-24.9, adult
CPT/HCPCS: 94003; 94760; A6209; G0378; J2274; J7060